=== PATIENT | female | born 1970 | race Caucasian/White ===

== ENCOUNTER 2022-01-27 09:01 | Outpatient (CLI) | payer BC, SELFPAY ==
--- NOTE | ~2022-01-27 | MM_ITS ---
EXAMINATION: MM screening [facility] BI w chuckie HISTORY: Screening mammogram TECHNIQUE: Craniocaudal and mediolateral oblique 3-D tomosynthesis images were obtained and synthetic 2-D images were generated. CAD analysis was submitted and interpreted. COMPARISON: 05/26/2018 bilateral screening mammogram BREAST PARENCHYMAL COMPOSITION: The breasts are heterogeneously dense, which may obscure small masses . FINDINGS: Stable fibroglandular asymmetry. There is no evidence of suspicious mass, calcification, or architectural distortion to suggest malignancy in either breast. There has been no suspicious interv al change. IMPRESSION: 1. No mammographic evidence of malignancy. 2. Recommend routine screening mammography in one year. BI-RADS Category 2: Benign finding(s). Reviewed, dictated and finalized at location A.
== END 2022-01-27 09:02 | disposition home or self-care (01) ==
PROVIDERS: PCP Internal Medicine; Visit Provider Nurse Practitioner
DX: Z12.31 Encounter for screening mammogram for malignant neoplasm of breast (principal)
CPT/HCPCS: 77063; 77067

== ENCOUNTER 2022-03-28 14:19 | Outpatient (CLI) | payer BC, SELFPAY ==
--- NOTE | ~2022-03-28 | CT_ITS ---
EXAMINATION: CT abdomen pelvis wo con DATE: 03/28/2022 14:37 INDICATION: Hematuria TECHNIQUE: Computed tomography (CT) of the abdomen and pelvis was performed without intravenous contr ast. Automated exposure control and iterative reconstruction technique were employed. Exam dose: 455 .29 mGy-cm total exam DLP. COMPARISON: 04/28/2019 KUB 04/18/2019 CT abdomen pelvis FINDINGS: The lung bases are clear of infiltrate or consolidation. Normal heart size. No pericardial or pleural effusion. The gallbladder is absent. There is mild intrahepatic pneumobilia. No bile duct or pancreatic duct di latation is detected. No hepatic, splenic, pancreatic, right adrenal space-occupying mass lesion is evident. There is thick ening of the medial limb of the left adrenal gland, possibly due to hypertrophy or small adenoma. No renal mass lesion or urinary tract calculus or hydroureteronephrosis is evident. The urinary bladd er is unremarkable. Multicystic left adnexal lesion is again noted, measuring up to 3.5 x 5.5 cm compared to 5 x 6 cm sundeep roximately on 04/18/2019. The uterus and right adnexal area are unremarkable. Normal caliber of the abdominal aorta. No intraperitoneal or retroperitoneal or pelvic mass lesion or adenopathy or ascites is noted otherwise. There is a small bowel anastomosis in the left lower quadrant with small bowel follow up to 4.9 cm pr oximal to the anastomotic site suggesting partial obstruction since 04/18/2019, at which time the tamar e area measuring up to only 2.9 cm diameter. Status post right partial colectomy. There are fluid levels in the transverse and descending colon. Included skeletal structures are unremarkable. IMPRESSION: Partial small bowel obstruction is suggested in the small bowel anastomotic site in the lower left quadrant, where the small bowel measures up to 4.9 cm diameter compared to 2.9 cm diameter on 04/18/2019 Status post right partial colectomy, with fluid levels in the transverse and descending colon Mildly diminished size of multicystic lesion of left adnexal area since 04/18/2019 No apparent renal mass lesion or any urinary tract calculus or hydroureteronephrosis is noted on this limited noncontrast examination. Reviewed, dictated and finalized at Location A. Reviewed, dictated and finalized at location B. GER TRADE IMPRESSION: Partial small bowel obstruction is suggested in the small bowel an astomotic site in the lower left quadrant, where the small bowel measures up to 4.9 cm diameter compared to 2.9 cm diameter on 04/18/2019 Status post right partial colectomy, with fluid levels in the transverse and de scending colon Mildly diminished size of multicystic lesion of left adnexal area since 019 No apparent renal mass lesion or any urinary tract calculus or hydroureteroneph rosis is noted on this limited noncontrast examination.
== END 2022-03-28 14:20 | disposition home or self-care (01) ==
PROVIDERS: PCP Internal Medicine; Visit Provider Nurse Practitioner
DX: R31.9 Hematuria, unspecified (principal)
CPT/HCPCS: 74176

== ENCOUNTER 2022-06-14 09:54 | Outpatient (CLI) | payer BC, SELFPAY ==
[2022-06-14 15:33] LABS: Basophils Absolute Auto 0.1 K/mm3 (0.0-0.1); Basophils Percent Auto 0.4 % (0.2-1.2); Eosinophils Absolute Auto 0.1 K/mm3 (0-0.3); Eosinophils Percent Auto 0.7 % (0-4.4); Hematocrit 39.4 % (37.0-47.0); Hemoglobin 12.9 g/dL (12.0-15.0); Immature Granulocyte Absolute 0.13 K/mm3 (0.00-0.031); Immature Granulocyte Percent A 0.7 % (0-0.5); Lymphocytes Absolute Auto 2.41 K/mm3 (0.9-3.2); Lymphocytes Percent Auto 13.6 % (18.3-44.2); Mean Corpuscular HGB Conc 32.7 g/dl (32-36); Mean Corpuscular Hemoglobin 30.1 pg (26-34); Mean Corpuscular Volume 92.1 fl (80-100); Mean Platelet Volume 9.3 fl (7.4-10.4); Monocytes Percent Auto 5.8 % (2.6-8.5); Neutrophils Percent Auto 78.8 % (45.5-73.1); Platelet Count Result 329 k/mm3 (150-375); Red Blood Count 4.28 M/mm3 (4.2-5.4); Red Cell Distribution Width 13.5 % (11.5-14.5); White Blood Count 17.7 K/mm3 (4.5-10.0)
[2022-06-14 16:26] LABS: Alanine Aminotransferase 17 U/L (6-35); Albumin Level 3.9 g/dL (3.5-5.1); Alkaline Phosphatase 68 U/L (38-126); Anion Gap 5 mmol/L (8-16); Aspartate Amino Transferase 26 U/L (14-36); Bilirubin,Total 0.5 mg/dL (0.2-1.3); Blood Urea Nitrogen 9 mg/dL (7-17); Calcium 8.3 mg/dL (8.4-10.2); Carbon Dioxide 29 mmol/L (22-30); Chloride 100 mmol/L (98-107); Estimated Glomerular Filt Rate > 60; Glucose 88 mg/dL (65-110); Potassium 3.3 mmol/L (3.4-5.0); Sodium 134 mmol/L (137-145)
== END 2022-06-14 09:55 | disposition home or self-care (01) ==
LOC: ANHGOSHLAB 09:56
PROVIDERS: PCP Internal Medicine; Visit Provider Internal Medicine
DX: K50.919 Crohn's disease, unspecified, with unspecified complications (principal)
CPT/HCPCS: 36415; 80053; 85025

== ENCOUNTER → 2022-08-08 12:14 | Outpatient (CLI) | payer BC, SELFPAY ==
--- NOTE | ~2022-08-08 | XR_ITS ---
AP and lateral views of the left hip Clinical history: Pain Findings: No acute fracture or dislocation is seen. Osseous alignment is anatomic. The left hip joint is preserved. Soft tissues are unremarkable. Impression: No significant abnormality is seen. Reviewed, dictated and finalized at location . Impression: No significant abnormality is seen.
== END ==
PROVIDERS: PCP Internal Medicine; Visit Provider Nurse Practitioner
DX: M25.552 Pain in left hip (principal)
CPT/HCPCS: 73502

== ENCOUNTER → 2022-12-16 09:25 | Outpatient (CLI) | payer BC, SELFPAY ==
--- NOTE | ~2022-12-16 | XR_ITS ---
EXAMINATION: XR toe 5th RT min 2V INDICATION: Right fifth toe pain TECHNIQUE: Three views of the right fifth toe are obtained. COMPARISON: None available FINDINGS: There is fusion of the fifth middle and distal phalanges. There appears to be a transverse fracture mid fusion. The proximal interphalangeal joint is unremarkable. There is soft tissue swellin g of the fifth toe. No additional fracture is identified. IMPRESSION: 1. Fracture of the fused fifth middle and distal phalanges. Reviewed, dictated and finalized at location B.
== END ==
PROVIDERS: PCP Internal Medicine; Visit Provider Nurse Practitioner
DX: M79.676 Pain in unspecified toe(s) (principal)
CPT/HCPCS: 73660

== ENCOUNTER → 2023-05-04 10:28 | Outpatient (CLI) | payer BC, SELFPAY ==
--- NOTE | ~2023-05-04 | XR_ITS ---
Right Hand Technique: PA and lateral views were obtained. Clinical History: Pain Findings: No acute fracture or dislocation is seen. Osseous alignment is anatomic. Joint spaces are p reserved. Soft tissues are unremarkable. Impression: Unremarkable right hand. Reviewed, dictated and finalized at location M. F ATTORNEY Impression: Unremarkable right hand.
== END ==
PROVIDERS: PCP Nurse Practitioner; Visit Provider Nurse Practitioner
DX: M79.646 Pain in unspecified finger(s) (principal)
CPT/HCPCS: 73120

== ENCOUNTER 2023-06-26 14:11 | Outpatient (CLI) | payer BC, SELFPAY ==
--- NOTE | ~2023-06-26 | MM_ITS ---
EXAMINATION: MM screening [facility] BI w chuckie HISTORY: Screening TECHNIQUE: Craniocaudal and mediolateral oblique 3-D tomosynthesis images were obtained and synthetic 2-D images were generated. CAD analysis was submitted and interpreted. COMPARISON: Comparison to multiple prior studies sequentially, with oldest reviewed study dated 10/28. BREAST PARENCHYMAL COMPOSITION: Not dense: There are scattered areas of fibroglandular density. FINDINGS: There is no evidence of suspicious mass, calcification, or architectural distortion to sugg est malignancy in either breast. There has been no suspicious interval change. IMPRESSION: 1. No mammographic evidence of malignancy. 2. Recommend routine screening mammography in one year. BI-RADS Category 1: Negative Reviewed, dictated and finalized at location A. IST
== END 2023-06-26 14:12 | disposition home or self-care (01) ==
LOC: ANHIMG 14:13
PROVIDERS: PCP Internal Medicine; Visit Provider Registered Nurse
DX: Z12.31 Encounter for screening mammogram for malignant neoplasm of breast (principal)
CPT/HCPCS: 77063; 77067

== ENCOUNTER 2023-07-03 19:44 | Emergency (ER) | payer BC, SELFPAY ==
--- NOTE | ~2023-07-03 | XR_ITS ---
EXAM: XR finger 5th LT min 2V DATE: 07/03/2023 21:07 HISTORY: pain, fall . COMPARISON: None available. FINDINGS: Normal mineralization. No acute fracture or dislocation. Old fracture of the distal aspect of the fifth middle phalange, healed in slight deformity. No lytic or blastic lesion. Joint spaces a nd physes are maintained. No erosion or periosteal change. Soft tissues within normal limits. IMPRESSION: No acute osseous finding in the left fifth finger. Reviewed, dictated and finalized at location K. CTOR EPIDEMIOLOGY
--- NOTE | ~2023-07-03 | XR_ITS ---
EXAM: XR shoulder LT min 2V DATE: 07/03/2023 21:06 HISTORY: left shoulder pain, fall . COMPARISON: None available. FINDINGS: Normal mineralization. No fracture or dislocation. No lytic or blastic lesion. Joint space s are maintained. No erosion or periosteal change. Soft tissues within normal limits. IMPRESSION: No acute osseous finding in the right shoulder. Reviewed, dictated and finalized at location K. GY CROP FARMER
--- NOTE | ~2023-07-03 | XR_ITS ---
EXAM: XR ankle RT min 3V DATE: 07/03/2023 21:07 HISTORY: right ankle pain, injury . COMPARISON: None available. FINDINGS: Normal mineralization. No fracture or dislocation. No lytic or blastic lesion. Joint space s are maintained. Minimal Achilles and mild plantar enthesopathy No erosion or periosteal change. Lat eral soft tissue swelling. Ankle joint effusion. IMPRESSION: No acute osseous finding in the right ankle. Reviewed, dictated and finalized at location K. IFIED MIDWIFE
--- NOTE | ~2023-07-03 | XR_ITS ---
EXAM: XR elbow LT min 3V DATE: 07/03/2023 21:06 HISTORY: left elbow pain, fall . COMPARISON: None available. FINDINGS: Normal mineralization. No fracture or dislocation. No lytic or blastic lesion. Joint space s are maintained. No erosion or periosteal change. Soft tissues within normal limits. IMPRESSION: No acute osseous finding in the left elbow. Reviewed, dictated and finalized at location K. MENT CARVER
[2023-07-03 19:50] VITALS: BP 133/67; PULSE 66; RESP 16; TEMP 36.4; O2SAT 99
--- NOTE | 2023-07-03 20:52 | ED.FALL ---
HPI - Fall General Chief Complaint: Fall Stated Complaint: Fall, R ankle pain, R arm pain Time Seen by Provider: 07/03/23 20:13 Source: patient Mode of arrival: ambulatory Limitations: no limitations History of Present Illness HPI Narrative: This is a 53-year-old female that presents to the emergency department for a fall today. Reports she was walking her dog and she tripped and fell. Reporting right ankle, left elbow, left shoulder, pain. Reports chronic deformity to the left 5th finger, that is more swollen than normal. Denies hitting her head or loss of consciousness. Denies decreased ROM or numbness. Related Data Home Medications Medication Instructions Recorded Confirmed multivitamin 1 cap PO DAILY 04/25/19 05/10/23 Allergies Allergy/AdvReac Type Severity Reaction Status Date / Time methylene blue Allergy Unknown Verified 07/03/23 20:03 morphine AdvReac Severe Headaches Verified 07/03/23 20:03 Review of Systems Review of Systems: CONSTITUTIONAL: Denies fever MUSCULOSKELETAL: Reports joint pain, and myalgia. NEUROLOGIC: Denies numbness, or weakness. All systems reviewed & are unremarkable except as noted in HPI and below PMFSH Past Medical History Medical History Anemia Anxiety Anxiety disorder, unspecified Crohn's disease Depression Fibromyalgia GERD (gastroesophageal reflux disease) History of blood transfusion Irritable bowel Osteoarthritis of hands, bilateral Restless leg syndrome Right ureteral calculus Skin cancer Surgical History Surgical History H/O local excision of skin lesion History of bowel resection History of primary section History of right hemicolectomy Hx of appendectomy Hx of cholecystectomy Hx of nephrolithotomy with removal of calculi removal of rt ureteral stone with stent placed in rt ureter Family History Family History Grandparent Family history of malignant neoplasm of breast Other Diabetes mellitus Social History Social History Smoking status: Never smoker Second hand tobacco smoke exposure: No Alcohol intake: never Lack of Transportation: No Lack of Food: Never True Current Housing: I Have Housing Concerned About Future Housing: No Difficulty Paying Gas/Electric Bills: No Difficulty Paying for Meds: No Currently Unemployed: Decline to Answer Education: Bachelor's Degree Difficulty w/ Childcare or Family Care: Decline to Answer Gender identity (if verbalized by the patient): Female Exam Narrative: GENERAL: Well-appearing, well-nourished, and in no acute distress. HEAD: Normocephalic, atraumatic. EYES: EOMI. CHEST: Clear to auscultation. No respiratory distress. No wheezes rales or rhonchi HEART: Regular rate and rhythm. No murmur heard. Normal peripheral pulses. EXTREMITIES: Normal range of motion. Right ankle with edema of the lateral malleoli. Normal DP pulse. Normal sensation. Left fifth finger with chronic deformity at the DIP joint. Normal radial pulse SKIN: Warm, dry, no rash. NEURO: No focal deficits. Alert and oriented x3. PSYCH: Normal mood and affect Course Course Emergency Course: Patient updated on workup and agrees with plan of care Vital Signs Vital signs: Vital Signs Temperature 97.6 F 07/03/23 19:50 Pulse Rate 66 07/03/23 19:50 Respiratory Rate 16 07/03/23 19:50 Blood Pressure 133/67 07/03/23 19:50 Pulse Oximetry 99 07/03/23 19:50 Oxygen Delivery Room Air 07/03/23 19:50 Temperature 97.6 F 07/03/23 19:50 Pulse Rate 66 07/03/23 19:50 Respiratory Rate 16 07/03/23 19:50 Blood Pressure 133/67 07/03/23 19:50 Pulse Oximetry 99 07/03/23 19:50 Oxygen Delivery Room Air 07/03/23 19:50 MDM - Fall MDM Narrative Medical decision making na
[2023-07-03] MEDS: IBUPROFEN 600 MG TABLET PO (21:10)
== END 2023-07-03 22:30 | disposition home or self-care (01) ==
PROVIDERS: Emergency Provider Physician Assistant; PCP Internal Medicine
DX: S93.401A Sprain of unspecified ligament of right ankle, initial encounter (principal); S49.92XA Unspecified injury of left shoulder and upper arm, initial encounter; S59.902A Unspecified injury of left elbow, initial encounter; K50.90 Crohn's disease, unspecified, without complications; K21.9 Gastro-esophageal reflux disease without esophagitis; M79.7 Fibromyalgia; M19.042 Primary osteoarthritis, left hand; M19.041 Primary osteoarthritis, right hand; G25.81 Restless legs syndrome; Z87.442 Personal history of urinary calculi; Z85.828 Personal history of other malignant neoplasm of skin; Z86.2 Personal history of diseases of the blood and blood-forming organs and certain disorders involving the immune mechanism; Z90.49 Acquired absence of other specified parts of digestive tract; W01.0XXA Fall on same level from slipping, tripping and stumbling without subsequent striking against object, initial encounter; Y93.K1 Activity, walking an animal
CPT/HCPCS: 73030; 73080; 73140; 73610; 99284; A9270

== ENCOUNTER 2023-07-14 08:15 | Outpatient (RCR) | payer BC, SELFPAY ==
--- NOTE | 2023-06-02 11:53 | OTOPEVAL1 ---
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 She is left handed. She works from home and is on a computer. Difficulties with opening jars, pinching, holding her phone, etc. Sharp increase in pain if her thumb gets bumped. She reports she drops a lot of items due to the pain. Assessment OT Clinical Summary Patient referred to OT with right 1st CMC joint OA . She presents with pain that is restricting her ability to use the thumb for ADLs and household tasks. Skilled OT indicated for orthotic fabrication, HEP instruction, modalities, manual therapy, education on joint protection techniques and therapeutic exercise to facilitate reduced pain and improved functional use of her right hand . Plan of Care Interventions Therapeutic Exercise,Manual Therapy,Therapeutic Activities,Hot Pack/Cold Pack,Check Out for Orthotic/Pr,Paraffin OT Services Indicated Yes Treatment Frequency and 1x/week for 4 visits Duration These treatments will address the objective and functional deficits as defined above. The patient will be advanced safely and appropriately in order for the patient to progress towards his/her prior level of function. Additional exercises will be introduced and as well as a comprehensive home exercise program upon discharge, if needed, ?to ensure carryover of functional gains achieved in the clinic. This treatment plan has been reviewed and agreement upon by the patient.
--- NOTE | 2023-06-23 09:52 | OTOPPROG ---
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 She continues to notice difficulties with heavier tasks, such as taking pans out of the oven. She has been wearing her thumb spica splint and she reports it's comfortable and providing relief. Reports intensity and frequency of the pain is less. Assessment OT Clinical Summary Patient referred to OT with right 1st CMC joint OA . She presents today for progress update with reduced pain and improved functional ROM, which has carried over into improved functional hand use during ADLs. She continues to have residual weakness and pain, however. Continued skilled OT indicated for orthotic fabrication, HEP instruction, modalities, manual therapy, education on joint protection techniques and therapeutic exercise to facilitate reduced pain and improved functional use of her right hand. Plan of Care Interventions Therapeutic Exercise,Manual Therapy,Therapeutic Activities,Hot Pack/Cold Pack,Check Out for Orthotic/Pr,Paraffin OT Services Indicated Yes Treatment Frequency and 1x/week for 4 visits Duration These treatments will address the objective and functional deficits as defined above. The patient will be advanced safely and appropriately in order for the patient to progress towards his/her prior level of function. Additional exercises will be introduced and as well as a comprehensive home exercise program upon discharge, if needed, ?to ensure carryover of functional gains achieved in the clinic. This treatment plan has been reviewed and agreement upon by the patient.
--- NOTE | 2023-07-14 08:08 | PCOTNOTE ---
LATE NOTE FOR 07/07/23: Patient called & cancelled scheduled appointment this date.
--- NOTE | 2023-07-14 08:49 | OTOPDC ---
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 No longer reports daily pain, just soreness at the end of a busy day. She is complaint with splint wearing schedule. Assessment OT Clinical Summary Patient referred to OT with right 1st CMC joint OA. She has made great progress with therapy, noting reduced intensity and frequency of her thumb pain during ADLs. She is currently independent with splinting, joint protection techniques, and light strengthening HEP. No further skilled OT indicated at this time. Plan of Care OT Services Indicated No
== END 2023-07-14 10:31 | disposition home or self-care (01) ==
LOC: ANHOT 08:15
PROVIDERS: PCP Nurse Practitioner; Visit Provider Plastic Surgery
DX: M18.11 Unilateral primary osteoarthritis of first carpometacarpal joint, right hand (principal)
CPT/HCPCS: 97018; 97110; 97140; 97165; L3913

== ENCOUNTER 2024-07-23 20:47 | Emergency (ER) | payer BC, SELFPAY ==
--- NOTE | ~2024-07-23 | CT_ITS ---
EXAMINATION: CT abdomen pelvis w con DATE: 07/23/2024 22:34 INDICATION: hematuria; c/f stone; also abd pain hx crohns TECHNIQUE: Computed tomography (CT) of the abdomen and pelvis was performed with 100 mL Omnipaque-350 intravenous contrast. Automated exposure control and iterative reconstruction technique were employe d. The dose-length product was 420.06 mGy-cm. COMPARISON: 03/28/2022. FINDINGS: Lower thorax: Unremarkable Liver: Mild enlargement. Biliary/Gallbladder: Gallbladder is absent. Mildly dilated common bile duct, likely secondary to chol ecystectomy. Pancreas: No mass or duct dilation. Spleen: Normal. Adrenals: 1.2 cm left adrenal adenoma. Kidneys: No suspicious mass. Mild inflammatory change at the left renal pelvis without significant hy dronephrosis. 4 mm and 2 mm stones are present in the proximal left ureter. GI tract: Uniformly enhancing wall thickening in the duodenum. Short segment mildly dilated proximal jejunum, without wall thickening. Status post right partial colectomy, with fluid filling the remaini ng colon. Dilation of the small bowel anastomosis, measuring up to 6.1 cm (previously 4.9 cm), with t he suggestion of mucosal hyperemia. Appendix is surgically absent. Mesentery/Peritoneum: No ascites, mass, or free air. Retroperitoneum: No mass. Pelvis: Mostly empty urinary bladder. Normal uterus. Tubular serpiginous structure associated with th e right ovary. 4.6 cm simple appearing left ovarian cyst. Marked dilation of the left gonadal vein an d multiple pelvic veins.. Soft Tissues: Soft tissues and body wall unremarkable. Bones: No acute osseous finding. IMPRESSION: Mild hepatomegaly. 4 mm and 2 mm stones are present in the proximal left ureter, with mild ureteral inflammation but no significant hydronephrosis. Duodenal wall thickening, may reflect acute enteritis. Short segment proximal jejunal dilation, may represent focal ileus. Early obstruction not excluded. Progressive dilation of the small bowel anastomosis in the left lower quadrant, may reflect a degree of partial chronic obstruction. Mucosal hyperemia at the anastomosis may represent enteritis. Fluid filled colon as can be seen with diarrheal illness. 4.6 cm simple appearing left ovarian cyst. Possible right hydrosalpinx, consider pelvic ultrasound for further evaluation. Dilated pelvic and left gonadal veins as can be seen with pelvic congestion syndrome. Correlate clini gael for persistent dull pelvic pain lasting > 6 months, dysmenorrhea, dyspareunia, postcoital ache, and urinary symptoms. Reviewed, dictated and finalized at location K. IMPRESSION: Mild hepatomegaly. 4 mm and 2 mm stones are present in the proximal left ureter, with mild uretera l inflammation but no significant hydronephrosis. Duodenal wall thickening, may reflect acute enteritis. Short segment proximal jejunal dilation, may represent focal ileus. Early obstr uction not excluded. Progressive dilation of the small bowel anastomosis in the left lower quadrant, may reflect a degree of partial chronic obstruction. Mucosal hyperemia at the anastomosis may represent enteritis. Fluid filled colon as can be seen with diarrheal illness. 4.6 cm simple appearing left ovarian cyst. Possible right hydrosalpinx, consider pelvic ultrasound for further evaluation. Dilated pelvic and left gonadal veins as can be seen with pelvic congestion syn drome. Correlate clinically for persistent dull pelvic pain lasting > 6 months, dysmenorrhea, dyspareunia, postcoital ache, and urinary symptoms.
--- OUTSIDE RECORDS SUMMARY | 2024-07-23 20:50 | XMS_ITS | Encounter Summary ---
Author Organization [facility] [facility] [place] [address] Care Team Providers Care Tandem Mill Sticker Name Role Phone Leroy Jensen DO Primary Care Provider [phone] Reason for Visit * Reason Onset Date Comments Results 11/11/2019 Encounter Details Date Type Department Care Team (Late st Contact Info) Description 11/11/2019 Telephone [facility] [address] [place] [address] Alfredo Robles MD [address] [facility] [address] [place] [address] Results Social History Tobacco Use Types Packs/Day Years Used Date Smoking Tobacco: Former Cigarettes 1 14 1 993 - 05/01/2006 Smokeless Tobacco: Never Alcohol Use Standard Drinks/Week Comments No 0 (1 standard drink = 0.6 oz pur e alcohol) Sex and Gender Information Value Date Recorded Sex Assigned at Not on file Gender Identity Not on file Sexual Orientation Not on file documented as of this encounter Functional Status Functional Status Response Date of Assess ment Is person deaf or have serious hearing difficult y? No 03/10/2019 Is person blind or have serious difficulty seein g? No 03/10/2019 Does person have serious dif ficulty walking/climbing stairs? No 03/10/2019 Does person have difficulty dressing/bathing? No 03/10/2019 Does person have difficulty doing errands alone? No 03/10/2019 Cognitive Status Response Date of Assessm ent Does person have difficulty concentrating/remembering/making decisions? No 03/10/2019 documented as of this encounter Miscellaneous Notes * Telephone Encounter - Rebeka Kelly - 11/11/2019 9:26 AM CDT Patient called asking for biopsy results. Pt believes she missed a call from us with BX results. Please call pt at cell # [phone]. Please call patient. Charlene Kelly Senior Patient Wood Flooring Specialist Department of Dermatology, Mohs Surgery and Cutaneous Oncology [facility] Dermatology [facility] documented in this encounter Plan of Treatment Upcoming Encounters Date Type Department Care Team (Late st Contact Info) Description 08/30/2024 10:20 AM CDT Office Visit [facility] - Dermatology [address] [place] [address], [place] [address] Alfredo Robles MD [address] [place] [address] [address] [place] [address] documented as of this encounter Goals Goal Patient Goal Type Associated Problems Recent Progress Patient-Stated? Author Safety General On track( 023 8:59 AM CDT) Leni Romo RN Note: Expected end date: Ongoing Interventions: Your nurse will assess your risk for falls/injury each visit Use appropriate and safe transfer methods Medication Management General On track( 024 4:18 PM CDT) Leni Romo RN Note: Expected end date: Ongoing Interventions: Take all medications as prescribed Let your doctor know right away about any changes in your medications documented as of this encounter Visit Diagnoses Not on filedocumented in this encounter Additional Health Concerns Infection Onset Date Last Indicated Resolved Time CDIFF Under Investigation 07/28/2022 07/28/2022 1:07 PM CDT CDIFF Under Investigation 08/02/2022 08/11/2023 10:56 PM CDT CDIFF Under Investigation 09/07/2023 09/07/2023 4:35 AM CDT documented as of this encounter Care Teams Tandem Mill Sticker Relationship Specialty Start Date End Date Leroy Jensen DO PCP - General 02/01/16 documented as of this encounter
--- OUTSIDE RECORDS SUMMARY | 2024-07-23 20:50 | XMS_ITS | Clinical Summary ---
Author Organization [facility] Address [address] [place] [address] Care Team Providers Care Table Cut Off Saw Operator Name Role Phone Leroy Jensen DO Primary Care Provider Source Comments [facility],non-owned Affiliates and Associated Physician Practices is amultiple site organization consisting of ambulatory clinics and hospital sitesin [place], [place], [place] and [place]. This disclosure is being madepursuant to the Care Everywhere program and may not contain all information available regarding this patient. Last updated 18.[facility] Allergies Active Allergy Reactions Criticality Noted Date Comments Methylene Blue Other Low 06/01/2017 Methylene blue is contraindicated in patients taking nortriptyline. Morphine Headache Medium 08/10/2022 Medications * Be aware that medications may not be up to date on this document. Alwaysverify current medications with the patient. Medication Sig Dispensed Refills Start Date End Date Status vitamin D3 (CHOLECALCIFEROL) 25 MCG (1000 UT) tablet Take 2 (two) tablets by mouth once daily Active ibuprofen (MOTRIN) 600 MG tablet Take 1 (one) tablet by mouth once as needed (migraine headaches) Active pramipexole (Mirapex) 1 MG tablet Take 2 (two) tablets by mouth once daily Active Multiple Vitamins-Minerals (MULTIVITAMIN ADULT PO) Take 1 tablet by mouth once daily Active Myrbetriq 25 MG tablet Take 1 (one) tablet by mouth once daily 04/03/2023 Active Cholestyramine 4 GM/DOSEIndications: Bile salt-induced diarrhea (HCC) Take 4 (four) g by mouth once daily 378 g 1 08/10/2023 Active Additional Information Patient not taking.Reported on 10/10/2023 omeprazole (PriLOSEC) 40 MG capsuleIndications: Gastro-esophageal reflux disease without esophagitis Take 1 (one) capsule by mouth 2 times daily, before breakfast and supper for 60 days, THEN 1 (one) capsule daily before breakfast for 90 days. 210 capsule 08/10/2023 Active budesonide (Entocort EC) 3 MG capsuleIndications: Crohn's disease of colon with complication (HCC) Take 3 (three) capsules by mouth once daily for 28 days, THEN 2 (two) capsules once daily for 14 days, THEN 1 (one) capsule once daily for 14 days. 126 capsule 09/07/2023 Active Additional Information Patient not taking.Reported on 10/10/2023 polyethylene glycol (Golytely) 236 g solution Drink all of the prep at 6pm the night before colonoscopy. Please finish all of the prep before going to bed. 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 -Wound care instructions reviewed and provided -Home care instructions reinforced- apply salicylic acid (Compound W, Dr. Kirk's, etc) at home to verruca overnight. Remove in the morning and file down with disposable emery board then discard used emery board. Discontinue or hold treatment if significant discomfort occurs. 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 She understands and says she will. Other hemorrhoids 06/16/2019 Small bowel obstruction 03/10/2019 Rash and other nonspecific skin eruption 019 Assessment & Plan (06/12/2020 9:27 AM ENGLISH LANGUAGE LEARNER TEACHER): Bilateral palms - Ddx: punctate-type palmoplantar keratoderma vs palmoplantar porokeratosis, likely in setting of immunosuppression - Start OTC Cerave anti-itch and Amlactin PRN TID Prurigo papule 12/21/2018 History of nonmelanoma skin cancer 05/09/2018 Melanocytic nevi of trunk 05/09/2018 Actinic keratosis 05/09/2018 Neoplasm of uncertain behavior of skin 9 Assessment & Plan (06/12/2020 9:23 AM ENGLISH LANGUAGE LEARNER TEACHER): - Location: right superior baker, 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 If intervention is indicated, will make arrangements at that time Lentigines 05/09/2018 Assessment & Plan (06/12/2020 9:27 AM ENGLISH LANGUAGE LEARNER TEACHER): - Benign, patient reassured - Skin cancer, sun protection, and photoaging discussed Crohn's disease without complication 05/16/2017 Overview (07/31/2017): Per written order 04/05/2017 Mixed irritable bowel syndrome 04/05/2017 Gastro-esophageal reflux disease without esophag itis 04/05/2017 Acquired absence of other sp ecified parts of digestive tract 04/05/2017 Major depressive disorder, single episode 2016 Anxiety disorder 04/05/2017 Resolved Problems Problem Noted Date Diagnosed Date Resolved Date SCC (squamous cell carcinoma), leg, right 07/07/2020 07/07/2020 Encounters Date Type Department Care Team Description 07/11/2024 Travel from Last 3 Months Immunizations Name Administration Dates Next Due CovSonian primary monoval ent 12+ yr 0.3mL Purple cap 08/16/2020,07/26/2020 FLU VACCINE TRI IIV3 SPLIT PF IM (FLUVIRIN) 09/2016 HEP A/HEP B 08/10/2023,01/19/2023,09/15/2022 INFLUENZA VACCINE, QUADR. (F LUZONE; FLULAVAL; FLUARIX; AFLURIA QUADRIVALENT; 6MO+), 0.5 ML (IIV4) 03/11/2019 PNEUMOCOCCAL PPSV23 07/04/2018 Pneumococcal Pcv13 Conj 04/05/2017 TDAP, HISTORIC VACCINE 08/08/2022 Family History Medical History Relation Name Comments None Known Brother Cancer - Skin, Non Melanoma Father Status: Alive None Known Maternal Aunt None Known Maternal Grandfather None Known Maternal Grandmother None Known Maternal Uncle Cancer - Skin, Non Melanoma Mother Status: Alive None Known Other None Known Paternal Aunt None Known Paternal Grandfather Cancer - Breast Paternal Grandmother None Known Paternal Uncle None Known Sister Allergy (Severe) Neg Hx Asthma Neg Hx CVA Neg Hx Cancer Neg Hx Cancer - Other Neg Hx Cancer - Skin, Melanoma Neg Hx Eczema Neg Hx Hemophilia Neg Hx Psoriasis Neg Hx Rashes/Skin Problems Neg Hx Relation Name Status Comments Brother Father Maternal Aunt Maternal Grandfather Maternal Grandmother Maternal Uncle Mother Other Paternal Aunt Paternal Grandfather Paternal Grandmother Paternal Uncle Sister Social History Tobacco Use Types Packs/Day Years Used Date Smoking Tobacco: Former Cigarettes 1 14 1 993 - 05/01/2006 Smokeless Tobacco: Never Tobacco Cessation:Counseling Given: Not Answered Alcohol Use Standard Drinks/Week Comments No 0 (1 standard drink = 0.6 oz pur e alcohol) Sex and Gender Information Value Date Recorded Sex Assigned at Not on file Gender Identity Not on file Sexual Orientation Not on file Last Filed Vital Signs Vital Sign Reading Time Taken Comments Blood Pressure 121/82 10/10/2023 10:38 AM CDT Pulse 71 10/10/2023 10:15 AM CDT Temperature 36.1 C (97 F) 10/10/2023 9:57 AM CDT Respiratory Rate 15 10/10/2023 10:1 5 AM CDT Oxygen Saturation 100% 10/10/2023 10: 38 AM CDT Inhaled Oxygen Concentration - - Weight 68.9 kg (151 lb 14.4 oz) 10/10/2023 7:26 AM CDT Height 165.1 cm (5' 5 ) 10/10/2023 7:26 AM CDT Body Mass Index 25.28 10/10/2023 7:26 AM CDT Plan of Treatment Upcoming Encounters Date Type Department Care Team (Late st Contact Info) Description 08/30/2024 10:20 AM CDT Office Visit [facility] - Dermatology [address] [place] [address], [facility] [place] [address] Alfredo Robles MD [address] [address] [address] [place] [address] Health Maintenance Due Date Last Done Comments COLOGUARD (AGES 45-75) - COLON CA SCREENING 1972 CT COLONOGRAPHY - COLON CA SCREENING 1972 FIT - COLON CA SCREENING 1972 FLEX SIG - COLON CA SCREENING 1972 MAMMOGRAM 1972 PAP SMEAR 1972 HIV SCREENING 1987 HEPATITIS C SCREENING 06/06/1990 ZOSTER VACCINE (1 of 2) 2022 PNEUMOCOCCAL VACCINE 50+ (3 of 3 - PCV20 or PCV21) 07/05/2023 07/04/2018, 04/05/2017 COVID-19 VACCINE ( - season) 2023 05/14/2021, 08/16/2020, 07/26/2020 INFLUENZA VACCINE (#1) 2023 03/11/2019, 2016 LIPID TESTING 02/12/2024 02/11/2019 DEPRESSION SCREENING 05/01/2024 SCREENING FOR DIABETES 08/09/2026 , 03/10/2019, 07/04/2018, Additional history exists DTAP/TDAP/TD VACCINES (2 - Td or Tdap) 08/08/2032 08/08/2022 COLON MONITORING 10/09/2033 10/10/2023, 03/2023, 08/10/2022, Additional history exists COLONOSCOPY - COLON CA SCREENING 10/09/2033 10/10/2023, 08/10/2022, 08/10/2022, Additional history exists Colorectal Cancer Screening 10/09/2033 HEPATITIS A VACCINE Completed 08/10/2023, 01/19/2023, 09/15/2022 HEPATITIS B VACCINE Completed 08/10/2023, 01/19/2023, 09/15/2022 HIB VACCINE Aged Out No longer eligi ble based on patient's age to complete this topic HPV VACCINE Aged Out No longer eligi ble based on patient's age to complete this topic MENINGOCOCCAL (Group B) VACCINE SHARED DECISION-MAKING Aged Out No longer eligible based on patient's age to complete this topic MENINGOCOCCAL GROUPS A/C/Y/W VACCINE Aged Out No longer eligible based on patient's age to complete this topic Goals Goal Patient Goal Type Associated Problems Recent Progress Patient-Stated? Author Safety General On track( 023 8:59 AM CDT) Leni Romo, JOANNE Note: Expected end date: Ongoing Interventions: Your nurse will assess your risk for falls/injury each visit Use appropriate and safe transfer methods Medication Management General On track( 024 4:18 PM CDT) Leni Romo RN Note: Expected end date: Ongoing Interventions: Take all medications as prescribed Let your doctor know right away about any changes in your medications Procedures Procedure Name Priority Date/Time Associated Diagnosis Comments COMPREHENSIVE METABOLIC PANEL Routine 08/10/2023 11:07 AM CDT Crohn's disease without complication, unspecified gastrointestinal tract location ENDOSCOPY, COLON, SCREENING Routine 08/10/2022 10:16 AM CDT LIPID PROFILE (EXTERAL RESULT ENTRY) Routine 02/11/2019 from Last 3 Months or Most Recently Relevant to Health Maintenance Results * (ABNORMAL) COMPREHENSIVE METABOLIC PANEL (08/10/2023 11:07 AM [facility]) BUN 12 7 - 26 mg/dL 08/10/2023 11:45 AM [facility] Creatinine 0.55(L) 0.56 - 0.96 mg/dL 08/10/2023 11:45 AM [facility] Sodium 139 136 - 145 mmol/L 08/10/2023 11:45 AM [facility] Potassium 3.6 3.5 - 4.5 mmol/L 08/10/2023 11:45 AM [facility] Chloride 106 98 - 107 mmol/L 08/10/2023 11:45 AM [facility] CO2 25 22 - 29 mmol/L 08/10/2023 11:45 AM [facility] Glucose 100 70 - 115 mg/dL 08/10/2023 11:45 AM [facility] Calcium 9.2 8.4 - 10.2 mg/dL 08/10/2023 11:45 AM [facility] Protein Total 6.9 6.0 - 8.3 g/dL 08/10/2023 11:45 AM [facility] Albumin 3.7 3.4 - 5.0 g/dL 08/10/2023 11:45 AM [facility] Bilirubin Total 0.7 0.2 - 1.2 mg/dL 08/10/2023 11:45 AM [facility] Alkaline Phosphatase 74 40 - 150 U/L 08/10/2023 11:45 AM [facility] ALT 13 5 - 55 U/L 08/10/2023 11:45 AM [facility] AST 14 5 - 34 U/L 08/10/2023 11:45 AM [facility] Anion Gap 8 6 - 16 08/10/2023 11:45 AM [facility] BUN/Creatinine Ratio 22 7 - 23 08/10/2023 11:45 AM [facility] Osmolality Calculated 288 275 - 295 mOsm/kg 08/10/2023 11:45 AM [facility] Albumin/Globulin Ratio 1.2 1.1 - 2.3 08/10/2023 11:45 AM CDT [facility] eGFR by CKD-EPI >90 >=90 mL/min/1.7 3 m2 08/10/2023 11:45 AM CDT [facility] Blood BLOOD SPECIMEN / Unknown Lab Venipuncture / Unknown 08/10/2023 11:07 AM CDT 08/10/2023 11:16 AM CDT Provider Unknown LAB - CHEMISTRY KONSTANTIN ROGERS [facility] [address] [place] [address], [facility] [phone] * ENDOSCOPY, COLON, SCREENING (08/10/2022 10:16 AM CDT) Report Endoscopy POC Endoscopy Department Report _ Patient Name: Summer York Procedure Date: 08/10/2022 10:16 AM Date of : 1970 Classification: Outpatient Gender: Female Ethnicity: Not or Race: White _ Providers: Tennille Young (Labundy)MD, Boaz Deal (Fellow) Referring MD: Procedure: Colonoscopy Indications: Follow-up of Crohn's disease of the small bowel and colon. Currently off Crohn's disease therapy. Medications: Monitored Anesthesia Care Patient Profile: 52 yo F with ileocolonic Crohn's disease and prior R hemicolectomy presents for assessment of disease activity off therapy. Description of Procedure: Pre-Anesthesia Assessment: - Prior to the procedure, a History and Physical was performed, and patient medications and allergies were reviewed. The patient's tolerance of previous anesthesia was also reviewed. The risks and benefits of the procedure and the sedation options and risks were discussed with the patient. All questions were answered, and informed consent was obtained. Prior Anticoagulants: The patient has taken no previous anticoagulant or antiplatelet agents. ASA Grade Assessment: II - A patient with mild systemic disease. After reviewing the risks and benefits, the patient was deemed in satisfactory condition to undergo the procedure. After I obtained informed consent, the scope was passed under direct vision. Throughout the procedure, the patient's blood pressure, pulse, and oxygen saturations were monitored continuously. The PCF-[id number] was introduced through the anus and advanced to the ileocolonic anastomosis. The colonoscopy was somewhat difficult due to significant looping and a tortuous colon. Successful completion of the procedure was aided by straightening and shortening the scope to obtain bowel loop reduction and lavage. The patient tolerated the procedure well. The quality of the bowel preparation was evaluated using the BBPS ([place] Bowel Preparation Scale) with scores of: Right Colon = 2 (minor amount of residual staining, small fragments of stool and/or opaque liquid, but mucosa seen well), Transverse Colon = 2 (minor amount of residual staining, small fragments of stool and/or opaque liquid, but mucosa seen well) and Left Colon = 2 (minor amount of residual staining, small fragments of stool and/or opaque liquid, but mucosa seen well). The total BBPS score equals 6. The quality of the bowel preparation was adequate. The ileocecal valve, appendiceal orifice, and rectum were photographed. Findings: The perianal and digital rectal examinations were normal. There was evidence of a prior R hemicolectomy and end-to-side ileo-colonic anastomosis at 50 cm proximal to the anus. A fistula vs. stricture was found and was traversed and lead to an area of dilated small bowel and prior anastamosis. There was some evidence of inflammation and erosions leading to what appeared to be the entrance to the ciera-terminal ileum. This area was biopsied with a cold forceps for histology. The ciera-terminal ileum could not be intubated. The colon (entire examined portion) appeared normal. This was biopsied with a cold forceps for histology. The exam was otherwise without abnormality on direct and retroflexion views. Estimated Blood Loss: Estimated blood loss was minimal. Complications: No immediate complications. Impression: - Preparation of the colon was fair. - Evidence of prior R hemicolectomy and patent end-to-side ileo-colonic anastomosis, with area of stricture vs. fistula that was biopsied. Neoterminal ileum was unable to be intubated due to edema and narrowing. - The entire examined colon is normal. Biopsied. - The examination was otherwise normal on direct and retroflexion views. Recommendation: - Resume previous diet. - Continue present medications. - Await pathology results. - Return to my office as previously scheduled. - Repeat colonoscopy is recommended. The colonoscopy date will be determined after pathology results from today's exam become available for review. Attending Participation: I was present and participated during the entire procedure, including non-ko portions. Procedure Code(s): --- Professional --- 29084, Colonoscopy, flexible; with biopsy, single or multiple Diagnosis Code(s): --- Professional --- Z98.0, Intestinal bypass and anastomosis status K50.80, Crohn's disease of both small and large intestine without complications CPT copyright 2019 [employer]. All rights reserved. The codes documented in this report are preliminary and upon medical transcription review may be revised to meet current compliance requirements. Tennille Young MD (Labundy) 08/10/2022 11:14:16 AM Note Initiated On: 08/10/2022 10:16 AM Number of Addenda: [address] [id number] [facility] 08/10/2022 10:1 6 AM CDT Tennille Young MD GI PROCEDURE ORDE KEN [facility] * (ABNORMAL) LIPID PROFILE (EXTERAL RESULT ENTRY) (02/11/2019) Cholesterol (EXTERNAL RESULT) 150 100 - 199 mg/dL Triglycerides (EXTERNAL RESULT) 215(A) 0 - 149 mg/dL HDL (EXTERNAL RESULT) 52 >39 mg/dL LDL (EXTERNAL RESULT) 55 0 - 99 mg/dL VLDL (EXTERNAL RESULT) 43(A) 5 - 40 mg/dL Chol HDL Ratio (External Result) Blood BLOOD SPECIMEN / Unknown 02/11/2019 Historical Provider LAB - CHEMISTRY O RDERABLES from Last 3 Months or Most Recently Relevant to Health Maintenance Advance Directives * Full Code (Latest Code Status on File) Date Activated Date Inactivated Comments 03/10/2019 11:27 PM 03/12/2019 11:25 AM Care Teams Table Cut Off Saw Operator Relationship Specialty Start Date End Date Leroy Jensen DO PCP - General 02/01/16
--- OUTSIDE RECORDS SUMMARY | 2024-07-23 20:50 | XMS_ITS ---
Author Organization [facility] Address [address] 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 Condyloma acuminata 06/16/2019 Assessment & Plan (06/12/2020 9:22 AM FISHER LAMPARA NET): x2 in perianal region today - Patient [...] 019 Assessment & Plan (06/12/2020 9:27 AM FISHER LAMPARA NET): Bilateral palms - Ddx: punctate-type palmoplantar keratoderma vs palmoplantar porokeratosis, likely in setting of immunosuppression - Start OTC Cerave anti-itch and Amlactin PRN TID Prurigo papule 12/21/2018 History of nonmelanoma skin cancer 05/09/2018 Melanocytic nevi of trunk 05/09/2018 Actinic keratosis 05/09/2018 Neoplasm of uncertain behavior of skin 9 Assessment & Plan (06/12/2020 9:23 AM FISHER LAMPARA NET): - Location: right superior baker, 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 If intervention is indicated, will make arrangements at that time Lentigines 05/09/2018 Assessment & Plan (06/12/2020 9:27 AM FISHER LAMPARA NET): - Benign, patient reassured - Skin cancer, sun protection, and photoaging discussed Crohn's disease without complication 05/16/2017 Overview (07/31/2017): Per written order 04/05/2017 Mixed irritable bowel syndrome 04/05/2017 Gastro-esophageal reflux disease without esophag itis 04/05/2017 Acquired absence of other sp ecified parts of digestive tract 04/05/2017 Major depressive disorder, single episode 2016 Anxiety disorder 04/05/2017 Current Oncology Plans No current plan information found. Other Current Plans RISANKIZUMAB (SKYRIZI) CROHN'S INDUCTION IVPB THERAPY PLAN* Plan Start Date: 09/07/2023 Plan Provider:Adalgisa Salguero APRN-CAROLYN Linked Problems Crohn's disease without comp lication, unspecified gastrointestinal tract location (HCC) Treatment Medications No medications scheduled. Past Plans Radiation Treatments * No radiation treatments are documented for this patient in [facility]. Treatments may have been administered in another system. Lifetime Dose Tracking * Chemical Lifetime Dose Automatic Entry Manual Entr y Dose Length Product 1,054 mGy-cm 1,054 mGy-cm 0 mGy-cm Resolved Problems Problem Noted Date Diagnosed Date Resolved Date SCC (squamous cell carcinoma), leg, right 07/07/2020 07/07/2020
[2024-07-23 20:51] VITALS: BP 122/61; PULSE 90; RESP 16; TEMP 36.6; O2SAT 98
--- NOTE | 2024-07-23 21:06 | ED.FEMALEGU ---
HPI - Female Genitourinary General Chief complaint: Urogenital-Female Stated complaint: Blood in urine-poss kidney stone Time Seen by Provider: 07/23/24 21:00 Source: patient Mode of arrival: ambulatory Limitations: no limitations History of Present Illness HPI Narrative: Patient presents with report hematuria this morning and night. She is concerned for possible kidney stone either still present or already passed. He has a history of kidney stone(s) requiring surgical intervention including a stent for the last 1. She also has had frequent diagnoses of urinary tract infections. She is perimenopause wound through last menstrual period occurring 8-9 years ago. She experiences some suprapubic/low abdominal/pelvic pain although also reports a history of Crohn's so difficult to identify although she does not believe she has a Crohn's flare. Her pain is 2/10 severity. She used a heating pad last night and that seemed to help. Not on anticoagulation, chronic steroids, or NSAIDs although she did take an Excedrin migraine this morning due to a headache. She was having some cramping on her left flank and abdomen of she states this is improving. No nausea or vomiting. Does not know the name the urologist she previously saw. She experiences frequent urination. Decreased urine output today. No fevers or chills. Related Data Home Medications ?Medication ?Instructions ?Recorded ?Confirmed ?Last Taken ?Type multivitamin 1 cap PO DAILY 04/25/19 03/20/24 Unknown History ascorbate calcium (vitamin C) 500 500 mg PO DAILY 02/15/24 03/20/24 Unknown History mg tablet magnesium 200 mg tablet 200 mg PO DAILY 02/15/24 03/20/24 Unknown History omeprazole 40 mg capsule,delayed mg PO 03/20/24 03/20/24 Unknown History release Allergies Allergy/AdvReac Type Severity Reaction Status Date / Time methylene blue Allergy Unknown Verified 07/23/24 20:48 morphine AdvReac Severe Headaches Verified 07/23/24 20:48 [facility] Past Medical History Medical History Anxiety disorder, unspecified Osteoarthritis of hands, bilateral Skin cancer Right ureteral calculus History of blood transfusion Anemia Anxiety Depression GERD (gastroesophageal reflux disease) Irritable bowel Fibromyalgia Restless leg syndrome Crohn's disease Surgical History Surgical History History of right hemicolectomy Hx of nephrolithotomy with removal of calculi removal of rt ureteral stone with stent placed in rt ureter H/O local excision of skin lesion History of primary section Hx of cholecystectomy Hx of appendectomy History of bowel resection Family History Family History Grandparent Family history of malignant neoplasm of breast Other Diabetes mellitus Social History Social History Smoking status: Former smoker Second hand tobacco smoke exposure: No Alcohol intake: never Lack of Transportation: No Lack of Food: Never True Current Housing: I Have Housing Concerned About Future Housing: No Difficulty Paying Gas/Electric Bills: No Difficulty Paying for Meds: No Currently Unemployed: Decline to Answer Education: Bachelor's Degree Difficulty w/ Childcare or Family Care: Decline to Answer Gender identity (if verbalized by the patient): Female Exam Narrative: GENERAL: Well-appearing, well-nourished, and in no acute distress. Nontoxic appearing HEAD: Normocephalic, atraumatic. EYES: Non injected, non icteric ENT: Nares clear, no rhinorrhea or epistaxis. NECK: Supple. CHEST: Speaking in full sentences. No respiratory distress. HEART: Regular rate and rhythm. . ABDOMEN: Soft, nondistended. Mild suprapubic tenderness to palpation without rigidity or guarding. Not peritoneal. : No CVA tenderness bilaterally. Hematuria is noted in collection container at bedside. EXTREMITIES: Normal range of motion. No lower extremity edema. SKIN: Warm, dry, no rash. NEURO: No focal deficits. Alert and oriented x3. PSYCH: Normal mood and affect. Course Vital Signs Vital signs: Vital Signs Temperature 98 F 07/23/24 20:51 Pulse Rate 90 07/23/24 20:51 Respiratory Rate 16 07/23/24 20:51 Blood Pressure 122/61 07/23/24 20:51 Pulse Oximetry 98 07/23/24 20:51 Oxygen Delivery Room Air 07/23/24 20:51 Temperature 98 F 07/23/24 20:51 Pulse Rate 88 07/24/24 01:11 Respiratory Rate 14 07/24/24 01:11 Blood Pressure 128/69 07/24/24 01:11 Pulse Oximetry 100 03/26/25 01:11 Oxygen Delivery Room Air 07/23/24 20:51 MDM - Female Genitourinary MDM Narrative Medical decision making narrative: Patient presents with report of hematuria this morning and tonight. Last night she was experiencing cramping on her left side (flank and abdomen) but this resolved after the use if the heating pad. She has a history of both kidney stones as frequent urinary tract infections lately. She is perimenopausal. She is concerned for possible kidney stone that is either still present or already passed though states pain is mild at this point, 2/10 in severity. In the emergency department they are afebrile with vital signs within normal limits. No bacteriuria on urinalysis however there is marked hematuria as well as leukocyte esterase positive and white blood cells. Given she also has suprapubic tenderness, will treat as UTI. Possible hemorrhagic cystitis but will continue to work up for other etiologies given history. Previous cultures are reviewed which showed no growth. CRP and ESR normal. Very mild leukocytosis. Patient is perimenopausal. test negative. CT scan does show presence of 2 small ureteral stones. Patient given medication to help with their passage as well as will be prescribed the same. She notes she does not have any contraindication to NSAIDs despite having Crohn's. Also will be provided a strainer and urology follow-up. She is also told about the presence of ovarian cyst and that NSAIDs can also help with the inflammation secondary to this. In addition we discussed the findings in her uterus and Fallopian tubes. This may explain her general suprapubic fullness as well as the frequent diagnosis of urinary tract infections but without clearly identifiable bacteria. She does have an Ob Gyne. We discussed outpatient follow-up in the form of a ultrasound for this and that this can be arranged through her PCP or Ob Gyne. She is flying to [place] in the morning. Provided paper prescription so that she can fill her prescriptions at the pharmacy of her choice. Given strict ED return precautions. She verifies understanding. Stable for discharge. Differential Diagnosis Differential diagnosis: Likely urinary tract infection, ovarian cyst, ruptured ovarian cyst, cystitis and other (Kidney stone, pyelonephritis, Crohn's flare; bladder cancer/malignancy) Lab Data Attestation: I reviewed the patient's lab results. 07/23/24 21:20 07/23/24 21:20 Labs: Lab Results 07/23/24 07/23/24 07/23/24 Range/Units 21:20 21:20 21:32 WBC 10.5 H (4.5-10.0) K/mm3 RBC 4.56 (4.2-5.4) M/mm3 Hgb 13.5 (12.0-15.0) g/dL Hct 41.8 (37.0-47.0) % MCV 91.7 (80-100) fl MCH 29.6 (26-34) pg MCHC 32.3 (32-36) g/dl RDW 13.5 (11.5-14.5) % Plt Count 345 (150-375) k/mm3 MPV 9.0 (7.4-10.4) fl Immature Gran % (Auto) 0.5 (0-0.5) % Neut % (Auto) 60.6 (45.5-73.1) % Lymph % (Auto) 29.3 (18.3-44.2) % [place] % (Auto) 6.7 (2.6-8.5) % Eos % (Auto) 2.4 (0-4.4) % Baso % (Auto) 0.5 (0.2-1.2) % Lymph # (Auto) 3.09 (0.9-3.2) K/mm3 [place] # (Auto) 0.7 H (0.1-0.6) K/mm3 Eos # (Auto) 0.3 (0-0.3) K/mm3 Baso # (Auto) 0.1 (0.0-0.1) K/mm3 Abs Immat Gran (auto) 0.05 H (0.00-0.031) K/mm3 Absolute Neuts (auto) 6.4 (1.3-6.7) K/mm3 Absolute Nucleated RBC 0.000 (0.0-0.012) K/mm3 Nucleated RBC % 0.0 (0.0-0.2) % ESR 9 (0-20) mm/hr PT 13.2 (11.1-14.7) Seconds INR 1.0 APTT 30.3 (22.3-36.8) Seconds Sodium 136 L (137-145) mmol/L Potassium 3.8 (3.4-5.0) mmol/L Chloride 102 (98-107) mmol/L Carbon Dioxide 23 (22-30) mmol/L Anion Gap 11 (4-12) mmol/L BUN 11 (7-17) mg/dL Creatinine 0.73 (0.7-1.0) mg/dL Estim Creat Clear Calc 79 ml/min Estimated GFR > 60 (59 - ) Glucose 111 H (65-110) mg/dL Calcium 9.0 (8.4-10.2) mg/dL C-Reactive Protein < 0.5 Cancelled (<1.0) mg/dL Urine Color Dark yellow (Yellow) Urine Appearance Turbid H (Clear) Urine pH 5.5 (5.0-9.0) Ur Specific [place] 1.028 (1.001-1.035) Urine Protein 2+ H (Negative) mg/dL Urine Glucose (UA) Negative (Negative) mg/dL Urine Ketones Trace H (Negative) mg/dL Ur Blood (Man) 3+ H (Negative) Urine Nitrate Negative (Negative) Urine Bilirubin 1+ H (Negative) Urine Urobilinogen 1.0 (<2.0) mg/dL Add Ur Microanalysis Reviewed Leukocyte Esterase Rfl 1+ H (Negative) YANETH/UL Urine RBC >100 H (0-2) /hpf Urine WBC 11-20 H (0-3) /hpf Ur Squamous Epith Cells None seen (Few) /hpf Calcium Oxalate Crystal Present (None) /hpf Urine Bacteria None seen /hpf Urine Casts 0-2 POC Urine HCG, Qual Negative (Negative) Imaging Data Radiologist's impression: Impressions Abdomen/Pelvis CT 07/23/24 23:44 IMPRESSION: Mild hepatomegaly. 4 mm and 2 mm stones are present in the proximal left ureter, with mild ureteral inflammation but no significant hydronephrosis. Duodenal wall thickening, may reflect acute enteritis. Short segment proximal jejunal dilation, may represent focal ileus. Early obstruction not excluded. Progressive dilation of the small bowel anastomosis in the left lower quadrant, may reflect a degree of partial chronic obstruction. Mucosal hyperemia at the anastomosis may represent enteritis. Fluid filled colon as can be seen with diarrheal illness. 4.6 cm simple appearing left ovarian cyst. Possible right hydrosalpinx, consider pelvic ultrasound for further evaluation. Dilated pelvic and left gonadal veins as can be seen with pelvic congestion syndrome. Correlate clinically for persistent dull pelvic pain lasting > 6 months, dysmenorrhea, dyspareunia, postcoital ache, and urinary symptoms. Discharge Plan Discharge Clinical Impression: Gross hematuria, UTI (urinary tract infection), Hepatomegaly, Calculus of left ureter, Enteritis, Cyst of left ovary, Abnormal CT scan, pelvis Patient Disposition: Home, Self-Care Condition: Stable Instructions: Antibiotic Form, Ovarian Cyst (ED), Urinary Tract Infection in Women (DC), Hematuria (ED), How to Strain Your Urine (ED), Ureteral Stones (ED) Additional Instructions: You do have evidence of 2 small stones in your ureter (2mm and 4mm) which are not currently obstructing anything and should pass on their own. Although the prescribed medications can help. You can strain your urine and follow-up with urology. The name of a urologist is listed below or you can follow-up with the urologist doing previously seen (Dr Solis). Acetaminophen/Tylenol (maximum 4000 mg per day) is safe to take with NSAIDs (ibuprofen/Motrin) for pain relief. Of these, the NSAIDs can help with both the pain and inflammation from the ureteral stone as well as ovarian cyst. Given that you are flying out of state in the morning, you are being given paper prescriptions that you can fill at an outside pharmacy. Although there was no bacteria in your urine, there are other potential markers of infection and given you are having suprapubic pain, we are treating as urinary tract infection. You received the 1st dose of antibiotic in the emergency department with the rest of the course prescribed. Again though, there are other reasons for both the blood in your urine and this pain. As discussed, seen on your CT: Possible right hydrosalpinx, consider pelvic ultrasound for further evaluation. Dilated pelvic and left gonadal veins as can be seen with pelvic congestion syndrome. Correlate clinically for persistent dull pelvic pain lasting > 6 months, dysmenorrhea, dyspareunia, postcoital ache, and urinary symptoms. Follow-up with your primary care physician or Ob Gyne who can order this study for the outpatient setting. Return to the emergency department with any new/worsening/unmanaged symptoms Patient Language: Vietnamese Prescriptions: New tamsulosin [Flomax] 0.4 mg capsule 0.4 mg PO HS Qty: 14 0RF acetaminophen 500 mg capsule 1,000 mg PO Q6H PRN (Reason: pain) Qty: 30 0RF ibuprofen 600 mg tablet 600 mg PO TID PRN (Reason: pain) Qty: 30 0RF ondansetron 4 mg tablet,disintegrating 4 mg PO Q8H PRN (Reason: nausea and vomiting) Qty: 7 0RF sulfamethoxazole-trimethoprim [Bactrim DS] 800-160 mg tablet 1 tablet PO Q12H 5 Days Qty: 9 0RF Rx Instructions: start 07/24 PM (received first dose in ED 07/24 AM) No Action omeprazole 40 mg capsule,delayed release(DR/EC) PO pramipexole 1 mg tablet See Rx Instructions .ROUTE .COMPLEX Qty: 270 3RF Dose Instruction: TAKE 2 TABLETS BY MOUTH EVERY NIGHT AT BEDTIME Rx Instructions: TAKE 3 TABLETS BY MOUTH EVERY NIGHT AT BEDTIME magnesium 200 mg tablet 200 mg PO DAILY ascorbate calcium (vitamin C) 500 mg tablet 500 mg PO DAILY multivitamin Capsule 1 cap PO DAILY Follow-up/Referrals: Royer Jay MD [Physician] - (Urology) Allan Solis MD [Physician] - (previous urologist) Lester Kumar MD [Physician] - Leroy Jensen DO [Primary Care Provider] - Stand Alone Forms: Work/School Release IP Time of Disposition: 00:59
[2024-07-23] MEDS: ACETAMINOPHEN 500 MG TABLET 1000 MG PO (21:21)
[2024-07-23 21:34] LABS: BEDSIDEPREGUCG Negative (Negative)
[2024-07-23 21:36] LABS: Basophils Absolute Auto 0.1 K/mm3 (0.0-0.1); Basophils Percent Auto 0.5 % (0.2-1.2); Eosinophils Absolute Auto 0.3 K/mm3 (0-0.3); Eosinophils Percent Auto 2.4 % (0-4.4); Hematocrit 41.8 % (37.0-47.0); Hemoglobin 13.5 g/dL (12.0-15.0); Immature Granulocyte Absolute 0.05 K/mm3 (0.00-0.031); Immature Granulocyte Percent A 0.5 % (0-0.5); Lymphocytes Absolute Auto 3.09 K/mm3 (0.9-3.2); Lymphocytes Percent Auto 29.3 % (18.3-44.2); Mean Corpuscular HGB Conc 32.3 g/dl (32-36); Mean Corpuscular Hemoglobin 29.6 pg (26-34); Mean Corpuscular Volume 91.7 fl (80-100); Monocytes Absolute Auto 0.7 K/mm3 (0.1-0.6); Monocytes Percent Auto 6.7 % (2.6-8.5); Neutrophils Absolute Auto 6.4 K/mm3 (1.3-6.7); Neutrophils Percent Auto 60.6 % (45.5-73.1); Platelet Count Result 345 k/mm3 (150-375); Red Blood Count 4.56 M/mm3 (4.2-5.4); Red Cell Distribution Width 13.5 % (11.5-14.5); White Blood Count 10.5 K/mm3 (4.5-10.0)
[2024-07-23 21:45] LABS: Add Urine Microscopic? YES; Appearance Urine Turbid (Clear); Bacteria Urine None Seen /hpf; Bilirubin Urine 1+ (Negative); Blood Urine 3+ (Negative); Calcium Oxalate Crystals Urine Present /hpf; Color Urine Dark Yellow (Yellow); Glucose Urine UA Negative (Negative); Ketones Urine Trace mg/dL (Negative); Leukocyte Esterase Ur 1+ LEU/UL (Negative); Need Manual Microscopic Reviewed; Nitrate Urine Negative (Negative); Non Pathogenic Casts 0-2; Protein Urine 2+ mg/dL (Negative); RBC Urine >100 /hpf (0-2); Specific Grav Ur 1.028 (1.001-1.035); Squamous Epithelial Cell Urine None Seen /hpf (Few); pH Urine 5.5 (5.0-9.0)
--- OUTSIDE RECORDS SUMMARY | 2024-07-23 21:46 | XMS_ITS | Encounter Summary ---
Author Organization [facility] Address [facility] [facility] [place] [address] Care Team Providers Care Copy Reader Name Role Phone Leroy Jensen DO Primary Care Provider [phone] Reason for Visit * Reason Onset Date Comments Results 11/11/2019 Encounter Details Date Type Department Care Team (Late st Contact Info) Description 11/11/2019 Telephone [facility] [address] [place] [address] Alfredo Robles MD [address] [facility] [address]L [place] [address] Results Social History Tobacco Use Types Packs/Day [...] results. Please call pt at cell # [phone]. Please call patient. Charlene Kelly Senior Patient Anthropology And Archeology Instructor Department of Dermatology, Mohs Surgery and Cutaneous Oncology [facility] Dermatology [facility] documented in this encounter Plan of Treatment Upcoming Encounters Date Type Department Care Team (Late st Contact Info) Description 08/30/2024 10:20 AM CDT Office Visit [facility] - Dermatology [address] [place] [address], [place] [address] Alfredo Robles MD [address] [place] [address] [address] [place] [address] documented as of this encounter Goals Goal [...] documented as of this encounter Care Teams Copy Reader Relationship Specialty Start Date End Date Leroy Jensen DO PCP - General 02/01/16 documented as of this encounter
--- OUTSIDE RECORDS SUMMARY | 2024-07-23 21:46 | XMS_ITS ---
Author Organization [facility] Address [address] 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 Condyloma acuminata 06/16/2019 Assessment & Plan (06/12/2020 9:22 AM [employer]): x2 in perianal region today - Patient [...] 019 Assessment & Plan (06/12/2020 9:27 AM [employer]): Bilateral palms - 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 If intervention is indicated, will make arrangements at that time Lentigines 05/09/2018 Assessment & Plan (06/12/2020 9:27 AM [employer]): - Benign, patient reassured - Skin cancer, [...] treatments are documented for this patient in [facility]. Treatments may have been administered in another system. Lifetime Dose Tracking * Chemical Lifetime Dose Automatic Entry Manual Entr y Dose Length Product 1,054 mGy-cm 1,054 mGy-cm 0 mGy-cm Resolved Problems Problem Noted Date Diagnosed Date Resolved Date SCC (squamous cell carcinoma), leg, right 07/07/2020 07/07/2020
--- OUTSIDE RECORDS SUMMARY | 2024-07-23 21:46 | XMS_ITS | Clinical Summary ---
Author Organization [facility] [employer] Address [address] [place] [address] Care Team Providers Care Physical Meteorologist Name Role Phone Leroy Jensen DO Primary Care Provider Source Comments [facility] [employer],non-owned Affiliates and Associated Physician Practices is amultiple site organization consisting of ambulatory clinics and hospital sitesin [place], [place], [place] and [place]. This disclosure is being madepursuant to the Care Everywhere program and may not contain all information available regarding this patient. 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 Condyloma acuminata 06/16/2019 Assessment & Plan (06/12/2020 9:22 AM [employer]): x2 in perianal region today - Patient [...] 019 Assessment & Plan (06/12/2020 9:27 AM [employer]): Bilateral palms - 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 If intervention is indicated, will make arrangements at that time Lentigines 05/09/2018 Assessment & Plan (06/12/2020 9:27 AM [employer]AND [employer]GER): - Benign, patient reassured - Skin cancer, [...] Months Immunizations Name Administration Dates Next Due CovTruly primary monoval ent 12+ yr 0.3mL Purple [...] Office Visit [facility] - Dermatology [address] [place] [address], [facility] [place] [address] Alfredo Robles MD [address] [place] [address] [address] [place] [address] Health Maintenance Due Date Last Done Comments [...] (ABNORMAL) COMPREHENSIVE METABOLIC PANEL (08/10/2023 11:07 AM [facility]) BUN 12 7 - 26 mg/dL 08/10/2023 11:45 AM [facility] Creatinine 0.55(L) 0.56 - 0.96 mg/dL 08/10/2023 11:45 AM [facility] Sodium 139 136 - 145 mmol/L 08/10/2023 11:45 AM [facility] Potassium 3.6 3.5 - 4.5 mmol/L 08/10/2023 11:45 AM [facility] Chloride 106 98 - 107 mmol/L 08/10/2023 11:45 AM [facility] CO2 25 22 - 29 mmol/L 08/10/2023 11:45 AM [facility] Glucose 100 70 - 115 mg/dL 08/10/2023 11:45 AM [facility] Calcium 9.2 8.4 - 10.2 mg/dL 08/10/2023 11:45 AM [facility] Protein Total 6.9 6.0 - 8.3 g/dL 08/10/2023 11:45 AM [facility] Albumin 3.7 3.4 - 5.0 g/dL 08/10/2023 11:45 AM [facility] Bilirubin Total 0.7 0.2 - 1.2 mg/dL 08/10/2023 11:45 AM [facility] Alkaline Phosphatase 74 40 - 150 U/L 08/10/2023 11:45 AM [facility] ALT 13 5 - 55 U/L 08/10/2023 11:45 AM [facility] AST 14 5 - 34 U/L 08/10/2023 11:45 AM [facility] Anion Gap 8 6 - 16 08/10/2023 11:45 AM [facility] BUN/Creatinine Ratio 22 7 - 23 08/10/2023 11:45 AM [facility] Osmolality Calculated 288 275 - 295 mOsm/kg 08/10/2023 11:45 AM [facility] Albumin/Globulin Ratio 1.2 1.1 - 2.3 08/10/2023 11:45 AM CDT [facility] eGFR by CKD-EPI >90 >=90 mL/min/1.7 3 m2 08/10/2023 11:45 AM CDT [facility] Blood BLOOD SPECIMEN / Unknown Lab Venipuncture / Unknown 08/10/2023 11:07 AM CDT 08/10/2023 11:16 AM CDT Provider Unknown LAB - CHEMISTRY KONSTANTIN ROGERS [facility] [address] [place] [address], [facility] [phone] * ENDOSCOPY, COLON, SCREENING (08/10/2022 10:16 AM CDT) Report Endoscopy POC Endoscopy Department Report _ Patient Name: Summer York Procedure Date: 08/10/2022 10:16 AM Date of : 1970 Classification: Outpatient Gender: Female Ethnicity: Not or Race: White _ Providers: Tnenille Young (Labundy)MD, Boaz Deal (Fellow) Referring MD: [...] bowel preparation was evaluated using the BBPS ([place] Bowel Preparation Scale) with scores of: Right [...] non-ko portions. Procedure Code(s): --- Professional --- 38249, Colonoscopy, flexible; with biopsy, single or multiple Diagnosis Code(s): --- Professional --- Z98.0, Intestinal bypass and anastomosis status K50.80, Crohn's disease of both small and large intestine without complications CPT copyright 2019 [employer]. All rights reserved. The codes documented in this report are preliminary and upon mica inspector review may be revised to meet current compliance requirements. Tennille Young MD (Labundy) 08/10/2022 11:14:16 AM Note Initiated On: 08/10/2022 10:16 AM Number of Addenda: [address] [address] [facility] 08/10/2022 10:1 6 AM CDT Tennille Young MD GI PROCEDURE ORDE KEN [facility] * (ABNORMAL) LIPID PROFILE (EXTERAL [...] 11:27 PM 03/12/2019 11:25 AM Care Teams Physical Meteorologist Relationship Specialty Start Date End Date Leroy Jensen DO PCP - General 02/01/16
[2024-07-23 21:47] LABS: Prothrombin Time 13.2 Seconds (11.1-14.7)
[2024-07-23 21:48] LABS: Anion Gap 11 mmol/L (4-12); Blood Urea Nitrogen 11 mg/dL (7-17); CRP < 0.5 mg/dL (<1.0); Carbon Dioxide 23 mmol/L (22-30); Chloride 102 mmol/L (98-107); Estimated CRCL calculation 79 ml/min; Estimated Glomerular Filt Rate > 60; Glucose 111 mg/dL (65-110); Partial Thromboplastin Time 30.3 Seconds (22.3-36.8); Potassium 3.8 mmol/L (3.4-5.0); Sodium 136 mmol/L (137-145)
[2024-07-23 21:59] LABS: Erythrocyte Sedimentation Rate 9 mm/hr (0-20)
[2024-07-24] MEDS: TAMSULOSIN HCL 0.4 MG CAPSULE PO (01:04)
[2024-07-24] MEDS: KETOROLAC 15 MG/ML VIAL (*BKC) IV PUSH (01:04)
[2024-07-24] MEDS: SULFAMETHOXAZOLE/TRIMETHOPRIM 800/160 MG DS TABLET 1 TAB PO (01:04)
[2024-07-24 01:11] VITALS: BP 128/69; PULSE 88; RESP 14; O2SAT 100
== END 2024-07-24 01:15 | disposition home or self-care (01) ==
PROVIDERS: Emergency Provider Student in an Organized Health Care Education/Training Program; PCP Internal Medicine
DX: N39.0 Urinary tract infection, site not specified (principal); R31.9 Hematuria, unspecified; N20.1 Calculus of ureter; K52.9 Noninfective gastroenteritis and colitis, unspecified; R93.5 Abnormal findings on diagnostic imaging of other abdominal regions, including retroperitoneum; F41.9 Anxiety disorder, unspecified; M19.90 Unspecified osteoarthritis, unspecified site; D64.9 Anemia, unspecified; F32.A Depression, unspecified; K21.9 Gastro-esophageal reflux disease without esophagitis; M79.7 Fibromyalgia; G25.81 Restless legs syndrome
CPT/HCPCS: 36415; 74177; 80048; 81001; 81025; 85025; 85610; 85652; 85730; 86140; 87086; 96374; 99284; A9270; J1885; Q9967

== ENCOUNTER 2024-08-05 10:34 | Emergency (ER) | payer BC, SELFPAY ==
--- NOTE | ~2024-08-05 | CT_ITS ---
CT of the Abdomen and Pelvis: Indication: Abdominal pain Technique: 2.5 mm axial scans were obtained through the abdomen and pelvis following intravenous adm inistration of 100 cc of Omnipaque 350. Dose reduction technique was used on this scan by utilizing a utomated exposure control and iterative reconstruction technique. The dose-length product (DLP) was 4 57.45 mGy-cm. COMPARISON: 07/23/2024, 03/28/2022 Findings: Scans through the lung bases are unremarkable. The liver, spleen, pancreas, right adrenal and, and right kidney are within normal limits. Left urete ral stones have migrated to the distal ureter (axial image 138), with minimal left hydronephrosis. St able small left adrenal nodule. Gallbladder absent. There is increased dilatation of the common bile duct to 17 mm. No evidence of aortic aneurysm. No lymphadenopathy. No bowel obstruction or bowel wall thickening. Stable partial colectomy. Images through the pelvis were performed. Urinary bladder unremarkable. Right hydrosalpinx versus cys tic ovarian mass is unchanged. No ascites. Impression: Left ureteral stones have migrated to the distal ureter since prior exam, as detailed above, with min imal left hydroureteronephrosis to this level. Increased dilatation of common bile duct to 17 mm, of uncertain clinical significance. Stable right hydrosalpinx versus other cystic ovarian mass. Reviewed, dictated and finalized at [facility]. Impression: Left ureteral stones have migrated to the distal ureter since prior exam, as de tailed above, with minimal left hydroureteronephrosis to this level. Increased dilatation of common bile duct to 17 mm, of uncertain clinical signif icance. Stable right hydrosalpinx versus other cystic ovarian mass.
[2024-08-05 10:47] VITALS: BP 141/97; PULSE 77; RESP 16; TEMP 36.4; O2SAT 99
--- NOTE | 2024-08-05 11:27 | PC.NURSE ---
Urine specimen obtained, thick bloody urine noted
--- NOTE | 2024-08-05 11:36 | ED_ITS ---
HPI - Abdominal Pain General Chief Complaint: Abdominal Pain Stated Complaint: kidney stone pain, feels like I have a bowel obstr Time Seen by Provider: 08/05/24 11:06 Source: patient Mode of arrival: ambulatory Limitations: no limitations History of Present Illness HPI narrative: This is a 54-year-old female that presents to the emergency department for left- sided abdominal pain. Reports recently being diagnosed with multiple ureteral stones. She has not had follow-up with urology yet. Reports continued pain as well as hematuria today. She has also had multiple loose stools. Reports nausea and vomiting. Denies fevers. Related Data Home Medications ?Medication ?Instructions ?Recorded ?Confirmed ?Last Taken ?Type multivitamin 1 cap PO DAILY 04/25/19 03/20/24 Unknown History ascorbate calcium (vitamin C) 500 500 mg PO DAILY 02/15/24 03/20/24 Unknown History mg tablet magnesium 200 mg tablet 200 mg PO DAILY 02/15/24 03/20/24 Unknown History omeprazole 40 mg capsule,delayed mg PO 03/20/24 03/20/24 Unknown History release Allergies Allergy/AdvReac Type Severity Reaction Status Date / Time methylene blue Allergy Unknown Verified 08/05/24 10:35 morphine AdvReac Severe Headaches Verified 08/05/24 10:35 Review of Systems 2 Review of Systems: CONSTITUTIONAL: Denies fever GASTROINTESTINAL: Reports abdominal pain, nausea, vomiting, and diarrhea. GENITOURINARY: Reports dysuria and hematuria. All systems reviewed & are unremarkable except as noted in HPI and below PMFSH Past Medical History Medical History Anxiety disorder, unspecified Osteoarthritis of hands, bilateral Skin cancer Right ureteral calculus History of blood transfusion Anemia Anxiety Depression GERD (gastroesophageal reflux disease) Irritable bowel Fibromyalgia Restless leg syndrome Crohn's disease Surgical History Surgical History History of right hemicolectomy Hx of nephrolithotomy with removal of calculi removal of rt ureteral stone with stent placed in rt ureter H/O local excision of skin lesion History of primary section Hx of cholecystectomy Hx of appendectomy History of bowel resection Family History Family History Grandparent Family history of malignant neoplasm of breast Other Diabetes mellitus Social History Social History Smoking status: Former smoker Second hand tobacco smoke exposure: No Alcohol intake: never Lack of Transportation: No Lack of Food: Never True Current Housing: I Have Housing Concerned About Future Housing: No Difficulty Paying Gas/Electric Bills: No Difficulty Paying for Meds: No Currently Unemployed: Decline to Answer Education: Bachelor's Degree Difficulty w/ Childcare or Family Care: Decline to Answer Gender identity (if verbalized by the patient): Female Exam 2 Narrative: GENERAL: Well-appearing, well-nourished, and in no acute distress. HEAD: Normocephalic, atraumatic. EYES: EOMI. CHEST: Clear to auscultation. No respiratory distress. No wheezes rales or rhonchi HEART: Regular rate and rhythm. No murmur heard. Normal peripheral pulses. ABDOMEN: Soft, nontender, nondistended, normal active bowel sounds. EXTREMITIES: Normal range of motion. No edema. SKIN: Warm, dry, no rash. NEURO: No focal deficits. Alert and oriented x3. PSYCH: Normal mood and affect Course Course Emergency Course: patient updated on workup and agrees with plan of care. reports pain is under control at this time. prefers outpatient management Consultations Consultation #1: spoke with urology about patient and workup. if pain is under control patient may discharge and follow up in clinic Date: 08/05/24 Vital Signs Vital signs: Vital Signs Temperature 97.5 F L 08/05/24 10:47 Pulse Rate 77 08/05/24 10:47 Respiratory Rate 16 08/05/24 10:47 Blood Pressure 141/97 H 08/05/24 10:47 Pulse Oximetry 99 08/05/24 10:47 Oxygen Delivery Room Air 08/05/24 10:47 Temperature 98.0 F 08/05/24 14:45 Pulse Rate 66 08/05/24 14:45 Respiratory Rate 18 08/05/24 14:45 Blood Pressure 132/79 08/05/24 14:45 Pulse Oximetry 98 08/05/24 14:45 Oxygen Delivery Room Air 08/05/24 10:47 MDM - Abdominal Pain MDM Narrative Medical decision making narrative: Patient presents to the emergency department for left flank/abdominal pain. History of recently diagnosed kidney stone. She is afebrile and nontoxic appearing. CBC with leukocytosis to 11.8. Metabolic panel without concerning findings. Urine with evidence of infection. This was sent for culture. Given dose of Rocephin in the ER. CT abdomen pelvis shows ureteral stones are now more distal. Once again shows right hydrosalpinx. spoke with urology about patient and workup. if pain is under control patient may discharge and follow up in clinic. patient updated on workup and agrees with plan of care. reports pain is under control at this time. prefers outpatient management. She was given warnings to return to the ER Differential Diagnosis Differential diagnosis: Likely calculus of kidney, small bowel obstruction and other (UTI) Lab Data Attestation: I reviewed the patient's lab results. 08/05/24 11:31 08/05/24 11:31 Labs: Lab Results 08/05/24 Range/Units 11:31 WBC 11.8 H (4.5-10.0) K/mm3 RBC 4.50 (4.2-5.4) M/mm3 Hgb 13.3 (12.0-15.0) g/dL Hct 42.1 (37.0-47.0) % MCV 93.6 (80-100) fl MCH 29.6 (26-34) pg MCHC 31.6 L (32-36) g/dl RDW 13.2 (11.5-14.5) % Plt Count 340 (150-375) k/mm3 MPV 9.3 (7.4-10.4) fl Immature Gran % (Auto) 0.3 (0-0.5) % Neut % (Auto) 73.0 (45.5-73.1) % Lymph % (Auto) 17.9 L (18.3-44.2) % [place] % (Auto) 7.0 (2.6-8.5) % Eos % (Auto) 1.3 (0-4.4) % Baso % (Auto) 0.5 (0.2-1.2) % Lymph # (Auto) 2.11 (0.9-3.2) K/mm3 [place] # (Auto) 0.8 H (0.1-0.6) K/mm3 Eos # (Auto) 0.2 (0-0.3) K/mm3 Baso # (Auto) 0.1 (0.0-0.1) K/mm3 Abs Immat Gran (auto) 0.04 H (0.00-0.031) K/mm3 Absolute Neuts (auto) 8.6 H (1.3-6.7) K/mm3 Absolute Nucleated RBC 0.000 (0.0-0.012) K/mm3 Nucleated RBC % 0.0 (0.0-0.2) % Sodium 140 (137-145) mmol/L Potassium 3.7 (3.4-5.0) mmol/L Chloride 105 (98-107) mmol/L Carbon Dioxide 25 (22-30) mmol/L Anion Gap 10 (4-12) mmol/L BUN 11 (7-17) mg/dL Creatinine 0.65 L (0.7-1.0) mg/dL Estim Creat Clear Calc 89 ml/min Estimated GFR > 60 (59 - ) Glucose 111 H (65-110) mg/dL Calcium 8.9 (8.4-10.2) mg/dL Total Bilirubin 0.4 (0.2-1.3) mg/dL AST 23 (14-36) U/L ALT 23 (6-35) U/L Alkaline Phosphatase 77 (38-126) U/L Total Protein 7.0 (6.3-8.2) g/dL Albumin 4.1 (3.5-5.1) g/dL Lipase 64 (23-300) U/L Urine Color Red H (Yellow) Urine Appearance Turbid H (Clear) Urine pH 5.0 (5.0-9.0) Ur Specific [place] 1.025 (1.001-1.035) Urine Protein 1+ H (Negative) mg/dL Urine Glucose (UA) Negative (Negative) mg/dL Urine Ketones Negative (Negative) mg/dL Ur Blood (Man) 1+ H (Negative) Urine Nitrate Positive H (Negative) Urine Bilirubin 1+ H (Negative) Urine Urobilinogen 1.0 (<2.0) mg/dL Add Ur Microanalysis Reviewed Leukocyte Esterase Rfl 2+ H (Negative) YANETH/UL Urine RBC >100 H (0-2) /hpf Urine WBC 21-50 H (0-3) /hpf Ur Squamous Epith Cells Occasional (Few) /hpf Urine Bacteria None seen /hpf Urine Casts 0-2 Imaging Data Radiologist's impression: ITS Impressions Abdomen/Pelvis CT 08/05/24 12:34 Impression: Left ureteral stones have migrated to the distal ureter since prior exam, as detailed above, with minimal left hydroureteronephrosis to this level. Increased dilatation of common bile duct to 17 mm, of uncertain clinical significance. Stable right hydrosalpinx versus other cystic ovarian mass. Critical Care Time Critical Care Time Critical Care Time: No Discharge Plan Discharge Clinical Impression: Ureterolithiasis, Acute UTI Patient Disposition: Home Condition: Stable Instructions: Antibiotic Form, Kidney Stones (ED), How to Strain Your Urine (ED) Additional Instructions: Return to the ER if you experience fever, abdominal pain with nausea and vomiting, you are unable to keep down liquids or solids, or any other symptoms that are concerning to you Remain well hydrated. Take Flomax as prescribed. [id number] pain medication as needed. Prescribed pain medication as needed. Take oral antibiotic as prescribed Follow up with urology. Call to make an appointment Patient Language: Citizen Of [place] Prescriptions: New hydrocodone-acetaminophen 5-325 mg tablet 1 tablet PO Q6H PRN (Reason: pain) Qty: 20 0RF cephalexin 500 mg tablet 500 mg PO Q6H 7 Days Qty: 28 0RF No Action omeprazole 40 mg capsule,delayed release(DR/EC) PO pramipexole 1 mg tablet See Rx Instructions .ROUTE .COMPLEX Qty: 270 3RF Dose Instruction: TAKE 2 TABLETS BY MOUTH EVERY NIGHT AT BEDTIME Rx Instructions: TAKE 3 TABLETS BY MOUTH EVERY NIGHT AT BEDTIME magnesium 200 mg tablet 200 mg PO DAILY ascorbate calcium (vitamin C) 500 mg tablet 500 mg PO DAILY multivitamin Capsule 1 cap PO DAILY tamsulosin [Flomax] 0.4 mg capsule 0.4 mg PO HS Qty: 14 0RF acetaminophen 500 mg capsule 1,000 mg PO Q6H PRN (Reason: pain) Qty: 30 0RF ibuprofen 600 mg tablet 600 mg PO TID PRN (Reason: pain) Qty: 30 0RF ondansetron 4 mg tablet,disintegrating 4 mg PO Q8H PRN (Reason: nausea and vomiting) Qty: 7 0RF sulfamethoxazole-trimethoprim [Bactrim DS] 800-160 mg tablet 1 tablet PO Q12H 5 Days Qty: 9 0RF Rx Instructions: start 07/24 PM (received first dose in ED 07/24 AM) Follow-up/Referrals: Omkar Urbina MD [Physician] - Leroy Jensen DO [Primary Care Provider] -
[2024-08-05] MEDS: HYDROmorphone HCL INJ (*CRX) 1 MG/ML SYR 0.5 MG IV PUSH ×2 (11:40→13:09)
[2024-08-05] MEDS: SODIUM CHLORIDE 0.9% IV 1,000 ML 999 ML IV CONT (11:41)
[2024-08-05 11:46] VITALS: BP 134/81; PULSE 57; RESP 18; O2SAT 97
[2024-08-05 11:50] LABS: Basophils Absolute Auto 0.1 K/mm3 (0.0-0.1); Basophils Percent Auto 0.5 % (0.2-1.2); Eosinophils Absolute Auto 0.2 K/mm3 (0-0.3); Eosinophils Percent Auto 1.3 % (0-4.4); Hematocrit 42.1 % (37.0-47.0); Hemoglobin 13.3 g/dL (12.0-15.0); Immature Granulocyte Absolute 0.04 K/mm3 (0.00-0.031); Immature Granulocyte Percent A 0.3 % (0-0.5); Lymphocytes Absolute Auto 2.11 K/mm3 (0.9-3.2); Lymphocytes Percent Auto 17.9 % (18.3-44.2); Mean Corpuscular HGB Conc 31.6 g/dl (32-36); Mean Corpuscular Hemoglobin 29.6 pg (26-34); Mean Corpuscular Volume 93.6 fl (80-100); Mean Platelet Volume 9.3 fl (7.4-10.4); Monocytes Absolute Auto 0.8 K/mm3 (0.1-0.6); Neutrophils Absolute Auto 8.6 K/mm3 (1.3-6.7); Platelet Count Result 340 k/mm3 (150-375); Red Cell Distribution Width 13.2 % (11.5-14.5); White Blood Count 11.8 K/mm3 (4.5-10.0)
[2024-08-05 11:59] LABS: Alanine Aminotransferase 23 U/L (6-35); Albumin Level 4.1 g/dL (3.5-5.1); Alkaline Phosphatase 77 U/L (38-126); Anion Gap 10 mmol/L (4-12); Aspartate Amino Transferase 23 U/L (14-36); Bilirubin,Total 0.4 mg/dL (0.2-1.3); Blood Urea Nitrogen 11 mg/dL (7-17); Calcium 8.9 mg/dL (8.4-10.2); Carbon Dioxide 25 mmol/L (22-30); Chloride 105 mmol/L (98-107); Estimated CRCL calculation 89 ml/min; Estimated Glomerular Filt Rate > 60; Glucose 111 mg/dL (65-110); Lipase 64 U/L (23-300); Potassium 3.7 mmol/L (3.4-5.0); Sodium 140 mmol/L (137-145)
[2024-08-05 12:10] LABS: Add Urine Microscopic? YES; Appearance Urine Turbid (Clear); Bilirubin Urine 1+ (Negative); Blood Urine 1+ (Negative); Color Urine Red (Yellow); Glucose Urine UA Negative (Negative); Ketones Urine Negative (Negative); Leukocyte Esterase Ur 2+ LEU/UL (Negative); Nitrate Urine Positive (Negative); Protein Urine 1+ mg/dL (Negative); Specific Grav Ur 1.025 (1.001-1.035)
--- OUTSIDE RECORDS SUMMARY | 2024-08-05 12:12 | XMS_ITS | Clinical Summary ---
Author Organization [facility] Address [address] [place] [address] Care Team Providers Care Telephone Betting Clerk Name Role Phone Leroy Jensen DO Primary Care Provider [phone] Source Comments [facility],non-owned Affiliates and Associated Physician Practices is amultiple site organization consisting of ambulatory clinics and hospital sitesin [place], [place], [place] and [place]. This disclosure is being madepursuant to the Care Everywhere program and may not contain all information available regarding this patient. 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 Condyloma acuminata 06/16/2019 Assessment & Plan (06/12/2020 9:22 AM FURNITURE FINISHER): x2 in perianal region today - Patient [...] 019 Assessment & Plan (06/12/2020 9:27 AM FURNITURE FINISHER): Bilateral palms - Ddx: 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 If intervention is indicated, will make arrangements at that time Lentigines 05/09/2018 Assessment & Plan (06/12/2020 9:27 AM FURNITURE FINISHER): - Benign, patient reassured - Skin cancer, [...] Months Immunizations Name Administration Dates Next Due CovBreaker primary monoval ent 12+ yr 0.3mL Purple [...] Office Visit [facility] - Dermatology [address] [place] [address], [facility] [place] [address] Alfredo Robles MD [address] [place] [address] [address] [place] [address] Health Maintenance Due Date Last Done Comments [...] ( - season) 2023 05/14/2021, 08/16/2020, 07/26/2020 LIPID TESTING 02/12/2024 02/11/2019 DEPRESSION SCREENING 05/01/2024 INFLUENZA VACCINE (Season Ended) 2024 03/11/2019, 04/05/2017 SCREENING FOR DIABETES 08/09/2026 , 03/10/2019, 07/04/2018, [...] (ABNORMAL) COMPREHENSIVE METABOLIC PANEL (08/10/2023 11:07 AM [facility]) BUN 12 7 - 26 mg/dL 08/10/2023 11:45 AM [facility] Creatinine 0.55(L) 0.56 - 0.96 mg/dL 08/10/2023 11:45 AM [facility] Sodium 139 136 - 145 mmol/L 08/10/2023 11:45 AM [facility] Potassium 3.6 3.5 - 4.5 mmol/L 08/10/2023 11:45 AM [facility] Chloride 106 98 - 107 mmol/L 08/10/2023 11:45 AM [facility] CO2 25 22 - 29 mmol/L 08/10/2023 11:45 AM [facility] Glucose 100 70 - 115 mg/dL 08/10/2023 11:45 AM [facility] Calcium 9.2 8.4 - 10.2 mg/dL 08/10/2023 11:45 AM [facility] Protein Total 6.9 6.0 - 8.3 g/dL 08/10/2023 11:45 AM [facility] Albumin 3.7 3.4 - 5.0 g/dL 08/10/2023 11:45 AM [facility] Bilirubin Total 0.7 0.2 - 1.2 mg/dL 08/10/2023 11:45 AM [facility] Alkaline Phosphatase 74 40 - 150 U/L 08/10/2023 11:45 AM [facility] ALT 13 5 - 55 U/L 08/10/2023 11:45 AM [facility] AST 14 5 - 34 U/L 08/10/2023 11:45 AM [facility] Anion Gap 8 6 - 16 08/10/2023 11:45 AM [facility] BUN/Creatinine Ratio 22 7 - 23 08/10/2023 11:45 AM [facility] Osmolality Calculated 288 275 - 295 mOsm/kg 08/10/2023 11:45 AM [facility] Albumin/Globulin Ratio 1.2 1.1 - 2.3 08/10/2023 11:45 AM CDT [facility] eGFR by CKD-EPI >90 >=90 mL/min/1.7 3 m2 08/10/2023 11:45 AM CDT [facility] Blood BLOOD SPECIMEN / Unknown Lab Venipuncture / Unknown 08/10/2023 11:07 AM CDT 08/10/2023 11:16 AM CDT Provider Unknown LAB - CHEMISTRY KONSTANTIN ROGERS [facility] [address] [place] [address], [facility] [phone] * ENDOSCOPY, COLON, SCREENING (08/10/2022 10:16 AM [...] bowel preparation was evaluated using the BBPS ([place] Bowel Preparation Scale) with scores of: Right [...] non-ko portions. Procedure Code(s): --- Professional --- 80908, Colonoscopy, flexible; with biopsy, single or multiple Diagnosis Code(s): --- Professional --- Z98.0, Intestinal bypass and anastomosis status K50.80, Crohn's disease of both small and large intestine without complications CPT copyright 2019 [employer]. All rights reserved. The codes documented in this report are preliminary and upon payable processor review may be revised to meet current compliance requirements. Tennille Young MD ([place]) 08/10/2022 11:14:16 AM Note Initiated On: 08/10/2022 10:16 AM Number of Addenda: [address] [address] [facility] 08/10/2022 10:1 6 AM CDT Tennille Young MD GI PROCEDURE ORDE KEN [facility] * (ABNORMAL) LIPID PROFILE (EXTERAL [...] 11:27 PM 03/12/2019 11:25 AM Care Teams Telephone Betting Clerk Relationship Specialty Start Date End Date Leroy Jensen DO PCP - General 02/01/16
--- OUTSIDE RECORDS SUMMARY | 2024-08-05 12:12 | XMS_ITS | Encounter Summary ---
Author Organization [facility] Address [facility] [place] [address] Care Team Providers Care Mail Processing Associate Name Role Phone Leroy Jensen DO Primary Care Provider [phone] Reason for Visit * Reason Onset Date Comments Results 11/11/2019 Encounter Details Date Type Department Care Team (Late st Contact Info) Description 11/11/2019 Telephone [facility] [address] [place] [address] Alfredo Robles MD [address] [facility] [address] [place] [address] Results Social History Tobacco Use Types Packs/Day [...] results. Please call pt at cell # [phone]. Please call patient. Charlene Kelly Senior Patient Director Of Loss Prevention Department of Dermatology, Mohs Surgery and Cutaneous Oncology [facility] documented in this encounter Plan of Treatment Upcoming Encounters Date Type Department Care Team (Late st Contact Info) Description 08/30/2024 10:20 AM CDT Office Visit [facility] - Dermatology [address] [place] [address], [place] [address] Alfredo Robles MD [address] [place] [address] [address] [place] [address] documented as of this encounter Goals Goal [...] documented as of this encounter Care Teams Mail Processing Associate Relationship Specialty Start Date End Date Leroy Jensen DO PCP - General 02/01/16 documented as of this encounter
--- OUTSIDE RECORDS SUMMARY | 2024-08-05 12:12 | XMS_ITS ---
Author Organization [facility] Address [address] 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 Other viral warts 06/12/2020 Assessment & Plan (06/12/2020 9:17 AM AOC DIRECTOR COMBAT PLANS OFFICER): x1 on R hand 3rd digit -Patient [...] 06/12/2020 Assessment & Plan (06/12/2020 9:16 AM AOC DIRECTOR COMBAT PLANS OFFICER): - No atypical or concerning moles on exam today - Reviewed ABCDEs of melanoma - Sun protection reviewed - Annual FBSE recommended 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 Condyloma acuminata 06/16/2019 Assessment & Plan (06/12/2020 9:22 AM AOC DIRECTOR COMBAT PLANS OFFICER): x2 in perianal region today - Patient [...] 019 Assessment & Plan (06/12/2020 9:27 AM AOC DIRECTOR COMBAT PLANS OFFICER): Bilateral palms - Ddx: punctate-type palmoplantar keratoderma vs palmoplantar porokeratosis, likely in setting of immunosuppression - Start OTC Cerave anti-itch and Amlactin PRN TID Prurigo papule 12/21/2018 History of nonmelanoma skin cancer 05/09/2018 Melanocytic nevi of trunk 05/09/2018 Actinic keratosis 05/09/2018 Neoplasm of uncertain behavior of skin 9 Assessment & Plan (06/12/2020 9:23 AM AOC DIRECTOR COMBAT PLANS OFFICER): - Location: right superior baker, 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 If intervention is indicated, will make arrangements at that time Lentigines 05/09/2018 Assessment & Plan (06/12/2020 9:27 AM AOC DIRECTOR COMBAT PLANS OFFICER): - Benign, patient reassured - Skin cancer, [...] treatments are documented for this patient in [facility]. Treatments may have been administered in another system. Lifetime Dose Tracking * Chemical Lifetime Dose Automatic Entry Manual Entr y Dose Length Product 1,054 mGy-cm 1,054 mGy-cm 0 mGy-cm Resolved Problems Problem Noted Date Diagnosed Date Resolved Date SCC (squamous cell carcinoma), leg, right 07/07/2020 07/07/2020
[2024-08-05 12:37] LABS: Bacteria Urine None Seen /hpf; Need Manual Microscopic Reviewed; Non Pathogenic Casts 0-2; RBC Urine >100 /hpf (0-2); Squamous Epithelial Cell Urine Occasional /hpf (Few); WBC Urine 21-50 /hpf (0-3)
[2024-08-05 13:45] VITALS: BP 130/64; PULSE 68; RESP 18; O2SAT 98
--- OUTSIDE RECORDS SUMMARY | 2024-08-05 13:46 | XMS_ITS | Clinical Summary ---
Author Organization [facility] Address [address] [place] [address] Care Team Providers Care Visiting Nurse Name Role Phone Leroy Jensen DO Primary Care Provider [phone] Source Comments [facility],non-owned Affiliates and Associated Physician Practices is amultiple site organization consisting of ambulatory clinics and hospital sitesin [place], [place], [place] and [place]. This disclosure is being madepursuant to the Care Everywhere program and may not contain all information available regarding this patient. 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 Condyloma acuminata 06/16/2019 Assessment & Plan (06/12/2020 9:22 AM PULMONARY PHYSICIAN): x2 in perianal region today - Patient [...] 019 Assessment & Plan (06/12/2020 9:27 AM PULMONARY PHYSICIAN): Bilateral palms - 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 If intervention is indicated, will make arrangements at that time Lentigines 05/09/2018 Assessment & Plan (06/12/2020 9:27 AM PULMONARY PHYSICIAN): - Benign, patient reassured - Skin cancer, [...] Months Immunizations Name Administration Dates Next Due CovCertiRx primary monoval ent 12+ yr 0.3mL Purple [...] Office Visit [facility] - Dermatology [address] [place] [address], [facility] [address] Alfredo Robles MD [address] [place] [address] [address] [place] [address] Health Maintenance Due Date Last Done Comments [...] (ABNORMAL) COMPREHENSIVE METABOLIC PANEL (08/10/2023 11:07 AM [facility]) BUN 12 7 - 26 mg/dL 08/10/2023 11:45 AM [facility] Creatinine 0.55(L) 0.56 - 0.96 mg/dL 08/10/2023 11:45 AM [facility] Sodium 139 136 - 145 mmol/L 08/10/2023 11:45 AM [facility] Potassium 3.6 3.5 - 4.5 mmol/L 08/10/2023 11:45 AM [facility] Chloride 106 98 - 107 mmol/L 08/10/2023 11:45 AM [facility] CO2 25 22 - 29 mmol/L 08/10/2023 11:45 AM [facility] Glucose 100 70 - 115 mg/dL 08/10/2023 11:45 AM [facility] Calcium 9.2 8.4 - 10.2 mg/dL 08/10/2023 11:45 AM [facility] Protein Total 6.9 6.0 - 8.3 g/dL 08/10/2023 11:45 AM [facility] Albumin 3.7 3.4 - 5.0 g/dL 08/10/2023 11:45 AM [facility] Bilirubin Total 0.7 0.2 - 1.2 mg/dL 08/10/2023 11:45 AM [facility] Alkaline Phosphatase 74 40 - 150 U/L 08/10/2023 11:45 AM [facility] ALT 13 5 - 55 U/L 08/10/2023 11:45 AM [facility] AST 14 5 - 34 U/L 08/10/2023 11:45 AM [facility] Anion Gap 8 6 - 16 08/10/2023 11:45 AM [facility] BUN/Creatinine Ratio 22 7 - 23 08/10/2023 11:45 AM [facility] Osmolality Calculated 288 275 - 295 mOsm/kg 08/10/2023 11:45 AM [facility] Albumin/Globulin Ratio 1.2 1.1 - 2.3 08/10/2023 11:45 AM CDT [facility] eGFR by CKD-EPI >90 >=90 mL/min/1.7 3 m2 08/10/2023 11:45 AM CDT [facility] Blood BLOOD SPECIMEN / Unknown Lab Venipuncture / Unknown 08/10/2023 11:07 AM CDT 08/10/2023 11:16 AM CDT Provider Unknown LAB - CHEMISTRY KONSTANTIN ROGERS [facility] [address] [place] [address], [facility] [phone] * ENDOSCOPY, COLON, SCREENING (08/10/2022 10:16 AM [...] bowel preparation was evaluated using the BBPS ([place] Bowel Preparation Scale) with scores of: Right [...] non-ko portions. Procedure Code(s): --- Professional --- 94209, Colonoscopy, flexible; with biopsy, single or multiple Diagnosis Code(s): --- Professional --- Z98.0, Intestinal bypass and anastomosis status K50.80, Crohn's disease of both small and large intestine without complications CPT copyright 2019 [employer]. All rights reserved. The codes documented in this report are preliminary and upon lens coater review may be revised to meet current compliance requirements. Tennille Young MD ([place]) 08/10/2022 11:14:16 AM Note Initiated On: 08/10/2022 10:16 AM Number of Addenda: [address] [id number] [facility] 08/10/2022 10:1 6 AM CDT Tennille Young MD GI PROCEDURE ORDE KEN [facility] * (ABNORMAL) LIPID PROFILE (EXTERAL RESULT [...] 11:27 PM 03/12/2019 11:25 AM Care Teams Visiting Nurse Relationship Specialty Start Date End Date Leroy Jensen DO PCP - General 02/01/16
--- OUTSIDE RECORDS SUMMARY | 2024-08-05 13:46 | XMS_ITS | Encounter Summary ---
Author Organization [facility] Address [facility] [facility] [place] [address] Care Team Providers Care Javascript Software Engineer Name Role Phone Leroy Jensen DO Primary Care Provider [phone] Reason for Visit * Reason Onset Date Comments Results 11/11/2019 Encounter Details Date Type Department Care Team (Late st Contact Info) Description 11/11/2019 Telephone [facility] [address] [place] [address] Aflredo Robles MD [address] [facility] [address] [place] [address] Results Social History Tobacco Use Types Packs/Day [...] results. Please call pt at cell # [phone]. Please call patient. Charlene Kelly Senior Patient Wood Lathe Operator Department of Dermatology, Mohs Surgery and Cutaneous Oncology [facility] Dermatology [facility] documented in this encounter Plan of Treatment Upcoming Encounters Date Type Department Care Team (Late st Contact Info) Description 08/30/2024 10:20 AM CDT Office Visit [facility] - Dermatology [address] [place] [address], [place] [address] Alfredo Robles MD [address] [place] [address] [address] [place] [address] documented as of this encounter Goals Goal [...] documented as of this encounter Care Teams Javascript Software Engineer Relationship Specialty Start Date End Date Leroy Jensen DO PCP - General 02/01/16 documented as of this encounter
--- OUTSIDE RECORDS SUMMARY | 2024-08-05 13:46 | XMS_ITS ---
Author Organization [facility] Address [address] 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 Condyloma acuminata 06/16/2019 Assessment & Plan (06/12/2020 9:22 AM TELEVISION STATION MANAGER): x2 in perianal region today - [...] 019 Assessment & Plan (06/12/2020 9:27 AM TELEVISION STATION MANAGER): Bilateral palms - Ddx: 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 If intervention is indicated, will make arrangements at that time Lentigines 05/09/2018 Assessment & Plan (06/12/2020 9:27 AM TELEVISION STATION MANAGER): - Benign, patient reassured - Skin [...] treatments are [facility]. Treatments may have been administered in another system. Lifetime Dose Tracking * Chemical Lifetime Dose Automatic Entry Manual Entr y Dose Length Product 1,054 mGy-cm 1,054 mGy-cm 0 mGy-cm Resolved Problems Problem Noted Date Diagnosed Date Resolved Date SCC (squamous cell carcinoma), leg, right 07/07/2020 07/07/2020
[2024-08-05 14:45] VITALS: BP 132/79; PULSE 66; RESP 18; TEMP 36.7; O2SAT 98
== END 2024-08-05 15:48 | disposition home or self-care (01) ==
PROVIDERS: Emergency Provider Physician Assistant; PCP Internal Medicine
DX: N20.1 Calculus of ureter (principal); N39.0 Urinary tract infection, site not specified; K50.90 Crohn's disease, unspecified, without complications; K21.9 Gastro-esophageal reflux disease without esophagitis; G25.81 Restless legs syndrome; M79.7 Fibromyalgia; M19.042 Primary osteoarthritis, left hand; M19.041 Primary osteoarthritis, right hand; Z87.442 Personal history of urinary calculi; Z85.828 Personal history of other malignant neoplasm of skin; Z87.891 Personal history of nicotine dependence; Z90.49 Acquired absence of other specified parts of digestive tract; R93.2 Abnormal findings on diagnostic imaging of liver and biliary tract; R93.89 Abnormal findings on diagnostic imaging of other specified body structures
CPT/HCPCS: 36415; 74177; 80053; 81001; 83690; 85025; 87040; 87086; 96361; 96365; 96375; 96376; 99284; J0696; J1171; J7030; Q9967

== ENCOUNTER 2024-09-17 11:16 | Outpatient (CLI) | payer BC, SELFPAY ==
--- NOTE | ~2024-09-17 | XR_ITS ---
Thoracic spine: Clinical Indication: Status post fall AP and lateral views were performed. No fracture is seen. There is normal alignment of the vertebrae. The intervertebral disc spaces appe ar normal. Paravertebral soft tissues appear normal. Impression: No significant abnormalities noted. Reviewed, dictated and finalized at [facility]. Impression: No significant abnormalities noted.
== END 2024-09-17 11:17 | disposition home or self-care (01) ==
PROVIDERS: PCP Nurse Practitioner; Visit Provider Nurse Practitioner
DX: M54.9 Dorsalgia, unspecified (principal); W19.XXXA Unspecified fall, initial encounter
CPT/HCPCS: 72070

== ENCOUNTER 2024-12-16 10:00 | Outpatient (CLI) | payer BC, SELFPAY ==
--- NOTE | ~2024-12-16 | MM_ITS ---
EXAMINATION: MM screening chele BI w chuckie HISTORY: Screening mammogram TECHNIQUE: Craniocaudal and mediolateral oblique 3-D tomosynthesis images were obtained and synthetic 2-D images were generated. CAD analysis was submitted and interpreted. COMPARISON: 06/26/2023, 01/27/2022 BREAST PARENCHYMAL COMPOSITION:Dense: The breasts are heterogeneously dense, which may obscure small masses. FINDINGS: There is a probable ovoid mass at the upper, outer right breast, middle depth. Stable paren chymal appearance of the left breast. No suspicious microcalcifications. IMPRESSION: Ovoid mass at the upper, outer right breast. Spot compression views and ultrasound are recommended fo r further evaluation. BI-RADS Category 0: Incomplete: Needs additional imaging evaluation. Reviewed, dictated and finalized at [facility]. IMPRESSION: Ovoid mass at the upper, outer right breast. Spot compression views and ultraso und are recommended for further evaluation. BI-RADS Category 0: Incomplete: Needs additional imaging evaluation.
--- OUTSIDE RECORDS SUMMARY | 2024-12-16 10:58 | XMS_ITS ---
Author Organization [facility] Address 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 Condyloma acuminata 06/16/2019 Assessment & Plan (06/12/2020 9:22 AM TRANSFORMER COIL WINDER): x2 in perianal region today - Patient [...] 019 Assessment & Plan (06/12/2020 9:27 AM TRANSFORMER COIL WINDER): Bilateral palms - Ddx: 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 If intervention is indicated, will make arrangements at that time Lentigines 05/09/2018 Assessment & Plan (06/12/2020 9:27 AM TRANSFORMER COIL WINDER): - Benign, patient reassured - Skin cancer, sun protection, and photoaging discussed Crohn's disease without complication 05/16/2017 Overview (07/31/2017): Per written order 04/05/2017 Mixed irritable bowel syndrome 04/05/2017 Gastro-esophageal reflux disease without esophag itis 04/05/2017 Acquired absence of other sp ecified parts of digestive tract 04/05/2017 Major depressive disorder, single episode 2016 Anxiety disorder 04/05/2017 Current Treatment and Therapy Plans No current plan information found. Other Current Plans RISANKIZUMAB (SKYRIZI) CROHN'S INDUCTION IVPB THERAPY PLAN* Plan Start Date: 09/07/2023 Plan Provider:Adalgisa Salguero APRN-CAROLYN Linked Problems Crohn's disease without comp lication, unspecified gastrointestinal tract location (HCC) Treatment Medications No medications scheduled. Past Treatment and Therapy Plans Lifetime Dose Tracking * Chemical Lifetime Dose Automatic Entry Manual Entr y Dose Length Product 1,054 mGy-cm 1,054 mGy-cm 0 mGy-cm Resolved Problems Problem Noted Date Diagnosed Date Resolved Date SCC (squamous cell carcinoma), leg, right 07/07/2020 07/07/2020
--- OUTSIDE RECORDS SUMMARY | 2024-12-16 10:58 | XMS_ITS ---
Sister Social History Tobacco Use Types Packs/Day Years Used Date Smoking Tobacco: Former Cigarettes 1 14 1 993 - 05/01/2006 Smokeless Tobacco: Never Tobacco Cessation:Counseling Given: Not Answered Alcohol Use Standard Drinks/Week Comments No 0 (1 standard drink = 0.6 oz pur e alcohol) Comments No Sex and Gender Information Value Date Recorded Sex Assigned at Not on file Legal Sex Female 5:12 PM CANNON PINION ADJUSTER Gender Identity Not on file Sexual Orientation [...] 7:26 AM CDT Height 165.1 cm (5' 5) 10/10/2023 7:26 AM CDT Body Mass Index 25.28 10/10/2023 7:26 AM CDT Plan of Treatment Health Maintenance Due Date Last Done Comments COLOGUARD (AGES 45-75) - COLON CA SCREENING 1972 CT COLONOGRAPHY - COLON CA SCREENING 1972 FIT - COLON CA SCREENING 1972 FLEX SIG - COLON CA SCREENING 1972 MAMMOGRAM 1972 HIV SCREENING 1987 HEPATITIS C SCREENING 06/06/1990 PAP SMEAR 1993 ZOSTER VACCINE (1 of 2) 2022 PNEUMOCOCCAL VACCINE 50+ (3 of 3 - PCV20 or PCV21) 07/05/2023 07/04/2018, 04/05/2017 COVID-19 VACCINE (4 - season) 2023 05/14/2021, 08/16/2020, 07/26/2020 LIPID TESTING 02/12/2024 02/11/2019 DEPRESSION SCREENING 05/01/2024 INFLUENZA VACCINE (#1) 2024 03/11/2019, 2016 SCREENING FOR DIABETES 08/09/2026 , 03/10/2019, 07/04/2018, Additional history exists DTAP/TDAP/TD VACCINES (2 - Td or Tdap) 08/08/2032 08/08/2022 COLON MONITORING 10/09/2033 10/10/2023, 03/2024, 08/10/2022, Additional history exists COLONOSCOPY - COLON CA SCREENING 10/09/2033 10/10/2023, 10/10/2023, 08/10/2022, Additional history exists Colorectal Cancer Screening [...] On track( 024 4:18 PM CDT) Leni Romo, JOANNE Note: Expected end date: Ongoing Interventions: Take all medications as prescribed Let your doctor know right away about any changes in your medications Procedures Procedure Name Priority Date/Time Associated Diagnosis Comments ENDOSCOPY, COLON, DIAGNOSTIC Routine 10/10/2023 7:46 AM CDT COMPREHENSIVE METABOLIC PANEL Routine 08/10/2023 11:07 AM CDT Crohn's disease without complication, unspecified gastrointestinal tract location LIPID PROFILE (EXTERAL RESULT ENTRY) Routine 02/11/2019 from Last 3 Months or Most Recently Relevant to Health Maintenance Results * ENDOSCOPY, COLON, DIAGNOSTIC (10/10/2023 7:46 AM CDT) Report Endoscopy POC Endoscopy Department Report _ Patient Name: Summer York Procedure Date: 10/10/2023 7:46 AM Date of : 1970 Classification: Outpatient Gender: Female Ethnicity: Not or Race: White _ Providers: Quan Cummins MD, Adalgisa Sumner (Fellow) Referring MD: Procedure: Colonoscopy Indications: For therapy of Crohn's disease of the small bowel and colon, Abnormal CTE of the GI tract showing suspected stricture Medications: Monitored Anesthesia Care Patient Profile: This is a 53 year old female with suspected colonic stricture, hx ileocolonic Crohn's s/p hemicolectomy and ileocolonic anastomosis. Description of Procedure: After I obtained informed consent, the scope was passed under direct vision. Throughout the procedure, the patient's blood pressure, pulse, and oxygen saturations were monitored continuously. The Endoscope was introduced through the anus and advanced to the terminal ileum. The colonoscopy was performed without difficulty. The patient tolerated the procedure well. The quality of the bowel preparation was evaluated using the BBPS (Traer Bowel Preparation Scale) with scores of: Right Colon = 3 (entire mucosa seen well with no residual staining, small fragments of stool or opaque liquid), Transverse Colon = 2 (minor amount of residual staining, small fragments of stool and/or opaque liquid, but mucosa seen well) and Left Colon = 3 (entire mucosa seen well with no residual staining, small fragments of stool or opaque liquid). The total BBPS score equals 8. Findings: Skin tags were found on perianal exam. There was evidence of a patent [id number] ileo-colonic anastomosis with an inner diameter of around 12 mm. It was viewed in retroflexion and was characterized by erosions. This was traversed before and after dilation. A TTS dilator was passed through the scope. A 10-12 mm balloon resulted no dilation/resistanc e. A 12-13.5-15 mm balloon dilation was performed to 15 mm. The dilation site was examined and showed mild mucosal disruption and complete resolution of luminal narrowing. This was biopsied with a cold forceps for histology. Proximal to this stricture is a mildly dilated surgically altered loop of small bowels. One to 2 cm proximal to that stricture is another stricture (likely representing ileo-ileal anastomosis) measuring about 6 mm. This was characterized by erosion, erythema and ulceration. This was traversed after dilation only. A TTS dilator was passed through the scope. Dilation with a 10-11-12 mm balloon dilator was performed to 12 mm. Moderate disruption of the mucosa was encountered. This was biopsied with a cold forceps for histology. Four aphthus ulcers in the ileal mcuosa with Rutgeert score of i1. Biopsies were taken with a cold forceps for histology. A mild but widely patent stenosis measuring 2 cm (in diameter) was found in the descending colon and was traversed. Biopsies were taken with a cold forceps for histology. Estimated Blood Loss: Estimated blood loss was minimal. Complications: No immediate complications. Impression: - Perianal skin tags found on perianal exam. - Ileocolonic anastomotic stricture mostly, measuring < 5 mm, and is mostly fibrotic despite likely ischemic erosive changes. Dilated to 15 mm. Biospied. - Mildly dilated loop of small bowels upstream from the stricture. Four aphthus ulcers noted. Biospied. - Proximal to that striture is another stricture, likely enteroenteric anastomosis. Tight. Likely mostly fibrotic despite ischemic erosive changes. Dilated to 12 mm. Biopsied. - Patent Stricture in the descending colon. Biopsied. Recommendation: - Patient has a contact number available for emergencies. The signs and symptoms of potential delayed complications were discussed with the patient. Return to normal activities tomorrow. Written discharge instructions were provided to the patient. - Low fiber diet and low residue diet. - Await pathology results. - Follow up with Dr Aguilar. Further dilation may be considered based on symptomatic response. Attending Participation: I was present and participated during the entire procedure, including non-ko portions. Procedure Code(s): --- Professional --- 48839, 22, Colonoscopy, flexible; with transendoscopic balloon dilation 33496, Colonoscopy, flexible; with transendoscopic balloon dilation 32058, Colonoscopy, flexible; with biopsy, single or multiple Diagnosis Code(s): --- Professional --- K91.89, Other postprocedural complications and disorders of digestive system K63.89, Other specified diseases of intestine K50.812, Crohn's disease of both small and large intestine with intestinal obstruction K64.4, Residual hemorrhoidal skin tags R93.3, Abnormal findings on diagnostic imaging of other parts of digestive tract CPT copyright 2021 [employer]. All rights reserved. The codes documented in this report are preliminary and upon certified coder review may be revised to meet current compliance requirements. Quan Cummins MD, 10/10/2023 11:07:11 AM This report has been signed electronically. Note Initiated On: 10/10/2023 7:46 AM Number of Addenda: [address] [id number] [facility] 10/10/2023 7:46 AM CDT us Quan Cummins MD GI PROCEDURE ORDERABLES Edited R esult - Final [facility] * (ABNORMAL) COMPREHENSIVE METABOLIC PANEL (08/10/2023 11:07 AM CDT) BUN 12 7 - 26 mg/dL 08/10/2023 11:45 AM CDT [facility] Creatinine 0.55(L) 0.56 - 0.96 mg/dL 08/10/2023 11:45 AM CDT [facility] Sodium 139 136 - 145 mmol/L 08/10/2023 11:45 AM [facility] Potassium 3.6 3.5 - 4.5 mmol/L 08/10/2023 11:45 AM [facility] Chloride 106 98 - 107 mmol/L 08/10/2023 11:45 AM [facility] CO2 25 22 - 29 mmol/L 08/10/2023 11:45 AM [facility] Glucose 100 70 - 115 mg/dL 08/10/2023 11:45 AM [facility] Calcium 9.2 8.4 - 10.2 mg/dL 08/10/2023 11:45 AM [facility] Protein Total 6.9 6.0 - 8.3 g/dL 08/10/2023 11:45 AM [facility] Albumin 3.7 3.4 - 5.0 g/dL 08/10/2023 11:45 AM [facility] Bilirubin Total 0.7 0.2 - 1.2 mg/dL 08/10/2023 11:45 AM [facility] Alkaline Phosphatase 74 40 - 150 U/L 08/10/2023 11:45 AM [facility] ALT 13 5 - 55 U/L 08/10/2023 11:45 AM [facility] AST 14 5 - 34 U/L 08/10/2023 11:45 AM [facility] Anion Gap 8 6 - 16 08/10/2023 11:45 AM [facility] BUN/Creatinine Ratio 22 7 - 23 08/10/2023 11:45 AM [facility] Osmolality Calculated 288 275 - 295 mOsm/kg 08/10/2023 11:45 AM [facility] Albumin/Globulin Ratio 1.2 1.1 - 2.3 08/10/2023 11:45 AM [facility] eGFR by CKD-EPI >90 >=90 mL/min/1.7 3 m2 08/10/2023 11:45 AM [facility] Blood BLOOD SPECIMEN / Unknown Lab Venipuncture / Unknown 08/10/2023 11:07 AM CDT 08/10/2023 11:16 AM CDT us Provider Unknown LAB - CHEMISTRY ORDERABLES Pilar l Result [facility] [address] [place] [address], [facility] [phone] * (ABNORMAL) LIPID PROFILE (EXTERAL RESULT ENTRY) (02/11/2019) Cholesterol (EXTERNAL RESULT) 150 100 - 199 mg/dL Triglycerides (EXTERNAL RESULT) 215(A) 0 - 149 mg/dL HDL (EXTERNAL RESULT) 52 >39 mg/dL LDL (EXTERNAL RESULT) 55 0 - 99 mg/dL VLDL (EXTERNAL RESULT) 43(A) 5 - 40 mg/dL Chol HDL Ratio (External Result) Blood BLOOD SPECIMEN / Unknown 02/11/2019 us Historical Provider MD LAB - CHEMISTRY ORDERABLE S Final Result from Last 3 Months or Most Recently Relevant to Health Maintenance Insurance [facility] Advance Directives * Full Code (Latest Code Status on File) Date Activated Date Inactivated Comments 03/10/2019 11:27 PM 03/12/2019 11:25 AM Care Teams Front Office Specialist Relationship Specialty Start Date End Date Leroy Jensen DO [facility] - General 02/01/16
--- OUTSIDE RECORDS SUMMARY | 2024-12-16 10:58 | XMS_ITS | Encounter Summary ---
Author Organization [facility] Address [facility] [facility] [place] [address] Care Team Providers Care Hydrocrane Operator Name Role Phone Leroy Jensen DO Primary Care Provider Reason for Visit * Reason Onset Date Comments Results 11/11/2019 Encounter Details Date Type Department Care Team (Late st Contact Info) Description 11/11/2019 Telephone [facility] [address] [place] [address] Alfredo Robles MD [address] [facility] [address] [place] [address] Results Social History Tobacco Use Types Packs/Day Years Used Date Smoking Tobacco: Former Cigarettes 1 14 1 993 - 05/01/2006 Smokeless Tobacco: Never Alcohol Use Standard Drinks/Week Comments No 0 (1 standard drink = 0.6 oz pur e alcohol) Comments No Sex and Gender Information Value Date Recorded Sex Assigned at Not on file Legal Sex Female 5:12 PM PRODUCTION ENGINEER TRACK Gender Identity Not on file Sexual Orientation Not on file documented as of this encounter Functional Status * Is person deaf or have serious hearing difficulty? Answer Date of Assessment Author No 03/10/2019 10:58 PM PRODUCTION ENGINEER TRACK Vicki Kern RN * Is person blind or have serious difficulty seeing? Answer Date of Assessment Author No 03/10/2019 10:58 PM Vicki Bragg RN * Does person have serious difficulty walking/climbing stairs? Answer Date of Assessment Author No 03/10/2019 10:58 PM Vicki Bragg RN * Does person have difficulty dressing/bathing? Answer Date of Assessment Author No 03/10/2019 10:58 PM Vicki Bragg RN * Does person have difficulty doing errands alone? Answer Date of Assessment Author No 03/10/2019 10:58 PM Vicki Bragg RN documented as of this encounter Mental Status * Does person have difficulty concentrating/remembering/making decisions? Answer Entry Date Author No 03/10/2019 10:58 PM Vicki Bragg RN documented in this encounter Miscellaneous Notes * Telephone Encounter - Rebeka Kelly - 11/11/2019 9:26 AM CDT Patient called asking for biopsy results. Pt believes she missed a call from us with BX results. Please call pt at cell # [phone]. Please call patient. Charlene Kelly Senior Patient Ski Lift Attendant Department of Dermatology, Mohs Surgery and Cutaneous Oncology [facility] Dermatology [facility] documented in this encounter Plan of Treatment Not on file documented as of this encounter Goals Goal [...] documented as of this encounter Care Teams Hydrocrane Operator Relationship Specialty Start Date End Date Leroy Jensen DO PCP - General 02/01/16 documented as of this encounter
== END 2024-12-16 10:01 | disposition home or self-care (01) ==
LOC: ANHIMG 10:01
PROVIDERS: PCP Nurse Practitioner; Visit Provider Internal Medicine
DX: Z12.31 Encounter for screening mammogram for malignant neoplasm of breast (principal); Z78.0 Asymptomatic menopausal state; R92.8 Other abnormal and inconclusive findings on diagnostic imaging of breast
CPT/HCPCS: 77063; 77067

== ENCOUNTER 2024-12-24 09:44 | Outpatient (CLI) | payer BC, SELFPAY ==
--- NOTE | ~2024-12-24 | MMUS_ITS ---
EXAMINATION: MM diagnostic chele RT w chuckie, US breast RT limited INDICATION: 54-year old female; BI-RADS 0, callback to evaluate Right breast mass COMPARISON: 12/16/2024 TECHNIQUE: Digital breast tomosynthesis ML and spot compression CC and MLO views of right breast were obtained with computer-aided detection to assist in interpretation of the study. FINDINGS: There are scattered areas of fibroglandular density. The mass of concern in the outer central at at posterior third within the right breast persisted as a circumscribed mass. Ultrasound was performed for further evaluation. RIGHT BREAST ULTRASOUND FINDINGS: Targeted evaluation of the area of concern completed showed a 1.1 x 1.1 x 0.4 cm solid hypoechoic mass with circumscribed margins at 10:00, 3 cm from the nipple location. The lesion correlates to the area of mammographic finding. IMPRESSION: Suspicious right breast mass at 10:00 location that correlates to mammography finding. Recommendation: Ultrasound-guided core needle biopsy of right breast mass at 10:00 location. BI-RADS 4, SUSPICIOUS Reviewed, dictated and finalized at location B. IMPRESSION: Suspicious right breast mass at 10:00 location that correlates to m ammography finding. Recommendation: Ultrasound-guided core needle biopsy of right breast mass at 10:00 location. BI-RADS 4, SUSPICIOUS
--- OUTSIDE RECORDS SUMMARY | 2024-12-24 10:02 | XMS_ITS ---
Author Organization [facility] Address [address] 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 Condyloma acuminata 06/16/2019 Assessment & Plan (06/12/2020 9:22 AM CHIEF LIBRARIAN WORK WITH BLIND): x2 in perianal region today - Patient [...] 019 Assessment & Plan (06/12/2020 9:27 AM CHIEF LIBRARIAN WORK WITH BLIND): Bilateral palms - 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 If intervention is indicated, will make arrangements at that time Lentigines 05/09/2018 Assessment & Plan (06/12/2020 9:27 AM CHIEF LIBRARIAN WORK WITH BLIND): - Benign, patient reassured - Skin cancer, [...]
--- OUTSIDE RECORDS SUMMARY | 2024-12-24 10:02 | XMS_ITS | Encounter Summary ---
Author Organization [facility] Address [facility] [facility] [place] [address] Care Team Providers Care Conflict Resolution Professional Name Role Phone Leroy Jensen DO Primary Care Provider [phone] Reason for Visit * Reason Onset Date Comments Results 11/11/2019 Encounter Details Date Type Department Care Team (Late st Contact Info) Description 11/11/2019 Telephone [facility] [address] [place] [address] Alfredo Robles MD [address] [facility] [address] [place] [address] Results Social History Tobacco Use Types Packs/Day Years Used Date Smoking Tobacco: Former Cigarettes 1 14 1 993 - 05/01/2006 Smokeless Tobacco: Never Alcohol Use Standard Drinks/Week Comments No 0 (1 standard drink = 0.6 oz pur e alcohol) Comments No Sex and Gender Information Value Date Recorded Sex Assigned at Not on file Legal Sex Female 5:12 PM FIRE CODE INSPECTOR Gender Identity Not on file Sexual Orientation Not on file documented as of this encounter Functional Status * Is person deaf or have serious hearing difficulty? Answer Date of Assessment Author No 03/10/2019 10:58 PM FIRE CODE INSPECTOR Vicki Kern RN * Is person blind or have serious difficulty seeing? Answer Date of Assessment Author No 03/10/2019 10:58 PM Vicki Bragg RN * Does person have serious difficulty walking/climbing stairs? Answer Date of Assessment Author No 03/10/2019 10:58 PM Vicki rBagg RN * Does person have difficulty dressing/bathing? [...] results. Please call pt at cell # [phone]. Please call patient. Charlene Kelly Senior Patient Slot Floor Supervisor Department of Dermatology, Mohs Surgery and Cutaneous Oncology [facility] Dermatology [facility] documented in this encounter Plan of Treatment [...] documented as of this encounter Care Teams Conflict Resolution Professional Relationship Specialty Start Date End Date Leroy Jensen DO PCP - General 02/01/16 documented as of this encounter
--- OUTSIDE RECORDS SUMMARY | 2024-12-24 10:03 | XMS_ITS | Clinical Summary ---
Author Organization [facility] Address [address] [place] [address] Care Team Providers Care Tool Turret Lathe Set Up Operator Name Role Phone Leory Jensen DO Primary Care Provider [phone] Source Comments [facility],non-owned Affiliates and Associated Physician Practices is amultiple site organization consisting of ambulatory clinics and hospital sitesin [place], [place], [place] and [place]. This disclosure is being madepursuant to the Care Everywhere program and may not contain all information available regarding this patient. Last updated 18.[facility] Allergies Active Allergy Reactions Criticality Noted Date Comments Methylene Blue Other Low 06/01/2017 Methylene blue is contraindicated in patients taking nortriptyline. Morphine Headache Medium 08/10/2022 Medications * Be aware that medications may not be up to date on this document. Alwaysverify current medications with the patient. vitamin D3 (CHOLECALCIFEROL ) 25 MCG (1000 UT) tablet Take 2 (two) tablets by mouth once daily Active ibuprofen (MOTRIN) 600 MG tablet Take 1 (one) tablet by mouth once as needed (migraine headaches) Active pramipexole (Mirapex) 1 MG tablet Take 2 (two) tablets by mouth once daily Active Multiple Vitamins-Mineral s (MULTIVITAMIN ADULT PO) Take 1 tablet by mouth once daily Active Myrbetriq 25 MG tablet Take 1 (one) tablet by mouth once daily 3 Active Cholestyramine 4 GM/DOSEIndicatio ns:Bile salt-induced diarrhea (HCC) Take 4 (four) g by mouth once daily 378 g 1 4 Active Additional Information Patient not taking.Reported on 10/10/2023 omeprazole (PriLOSEC) 40 MG capsuleIndicatio ns:Gastro-esopha geal reflux disease without esophagitis Take 1 (one) capsule by mouth 2 times daily, before breakfast and supper for 60 days, THEN 1 (one) capsule daily before breakfast for 90 days. 210 capsule 4 Active budesonide (Entocort EC) 3 MG capsuleIndicatio ns:Crohn's disease of colon with complication (HCC) Take 3 (three) capsules by mouth once daily for 28 days, THEN 2 (two) capsules once daily for 14 days, THEN 1 (one) capsule once daily for 14 days. 126 capsule 4 Active Additional Information Patient not taking.Reported on 10/10/2023 polyethylene glycol (Golytely) 236 g solution Drink all of the prep at 6pm the night before colonoscopy. Please finish all of the prep before going to bed. 4000 mL 4 Active pantoprazole (Protonix) 40 MG injection 3 Active clobetasol (Temovate) 0.05 % ointmentIndicati ons:Prurigo nodularis Apply to thick itchy bumps on legs twice daily until resolved. 30 days supply. 60 g 3 5 Active ketoconazole (Nizoral) 2 % creamIndications :Tinea pedis of both feet Apply to rash on the feet and between toes twice daily. 30 days supply. 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 -Wound care instructions reviewed and provided -Home care instructions reinforced- apply salicylic acid (Compound W, Dr. Boschs, etc) at home to verruca overnight. Remove in the morning and file down with disposable emery board then discard used emery board. Discontinue or hold treatment if significant discomfort occurs. 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 Condyloma acuminata 06/16/2019 Assessment & Plan (06/12/2020 9:22 AM ACTIVITIES ASSISTANT): x2 in perianal region today - Patient [...] 019 Assessment & Plan (06/12/2020 9:27 AM ACTIVITIES ASSISTANT): Bilateral palms - Ddx: punctate-type palmoplantar keratoderma vs palmoplantar porokeratosis, likely in setting of immunosuppression - Start OTC Cerave anti-itch and Amlactin PRN TID Prurigo papule 12/21/2018 History of nonmelanoma skin cancer 05/09/2018 Melanocytic nevi of trunk 05/09/2018 Actinic keratosis 05/09/2018 Neoplasm of uncertain behavior of skin 9 Assessment & Plan (06/12/2020 9:23 AM ACTIVITIES ASSISTANT): - Location: right superior baker, 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 If intervention is indicated, will make arrangements at that time Lentigines 05/09/2018 Assessment & Plan (06/12/2020 9:27 AM ACTIVITIES ASSISTANT): - Benign, patient reassured - Skin cancer, [...] (squamous cell carcinoma), leg, right 07/07/2020 07/07/2020 Immunizations Immunization Administration Dates Next Due Parastructure primary monoval ent 12+ yr 0.3mL Purple [...] on file Legal Sex Female 5:12 PM ACTIVITIES ASSISTANT Gender Identity Not on file Sexual Orientation [...] bowel preparation was evaluated using the BBPS (What Cheer Bowel Preparation Scale) with scores of: Right [...] exam. There was evidence of a patent [id number] ileo-colonic anastomosis with an inner diameter of [...] non-ko portions. Procedure Code(s): --- Professional --- 71076, 22, Colonoscopy, flexible; with transendoscopic balloon dilation 43589, Colonoscopy, flexible; with transendoscopic balloon dilation 21489, Colonoscopy, flexible; with biopsy, single or multiple Diagnosis Code(s): --- Professional --- K91.89, Other postprocedural complications and disorders of digestive system K63.89, Other specified diseases of intestine K50.812, Crohn's disease of both small and large intestine with intestinal obstruction K64.4, Residual hemorrhoidal skin tags R93.3, Abnormal findings on diagnostic imaging of other parts of digestive tract CPT copyright 2021 [employer]. All rights reserved. The codes documented in this report are preliminary and upon exhibit builder review may be revised to meet current compliance requirements. Quan Cummins MD, 10/10/2023 11:07:11 AM This report has been signed electronically. Note Initiated On: 10/10/2023 7:46 AM Number of Addenda: [address] [id number] [facility] 10/10/2023 7:46 AM CDT us Quan Cummins MD GI PROCEDURE ORDERABLES Edited R esult - Final [facility] * (ABNORMAL) COMPREHENSIVE METABOLIC PANEL (08/10/2023 11:07 AM CDT) BUN 12 7 - 26 mg/dL 08/10/2023 11:45 AM CDT [facility] Creatinine 0.55(L) 0.56 - 0.96 mg/dL 08/10/2023 11:45 AM [facility] Sodium 139 136 - 145 mmol/L 08/10/2023 11:45 AM [facility] Potassium 3.6 3.5 - 4.5 mmol/L 08/10/2023 11:45 AM [facility] Chloride 106 98 - 107 mmol/L 08/10/2023 11:45 AM [facility] CO2 25 22 - 29 mmol/L 08/10/2023 11:45 AM [facility] Glucose 100 70 - 115 mg/dL 08/10/2023 11:45 AM [facility] Calcium 9.2 8.4 - 10.2 mg/dL 08/10/2023 11:45 AM [facility] Protein Total 6.9 6.0 - 8.3 g/dL 08/10/2023 11:45 AM [facility] Albumin 3.7 3.4 - 5.0 g/dL 08/10/2023 11:45 AM [facility] Bilirubin Total 0.7 0.2 - 1.2 mg/dL 08/10/2023 11:45 AM [facility] Alkaline Phosphatase 74 40 - 150 U/L 08/10/2023 11:45 AM [facility] ALT 13 5 - 55 U/L 08/10/2023 11:45 AM [facility] AST 14 5 - 34 U/L 08/10/2023 11:45 AM [facility] Anion Gap 8 6 - 16 08/10/2023 11:45 AM [facility] BUN/Creatinine Ratio 22 7 - 23 08/10/2023 11:45 AM [facility] Osmolality Calculated 288 275 - 295 mOsm/kg 08/10/2023 11:45 AM [facility] Albumin/Globulin Ratio 1.2 1.1 - 2.3 08/10/2023 11:45 AM [facility] eGFR by CKD-EPI >90 >=90 mL/min/1.7 3 m2 08/10/2023 11:45 AM [facility] Blood BLOOD SPECIMEN / Unknown Lab Venipuncture / Unknown 08/10/2023 11:07 AM T 08/10/2023 11:16 AM CDT us Provider Unknown LAB - CHEMISTRY ORDERABLES Pilar munson Result [id number] [place] [address], [facility] [phone] * (ABNORMAL) LIPID PROFILE (EXTERAL RESULT ENTRY) (02/11/2019) Cholesterol (EXTERNAL RESULT) 150 100 - 199 mg/dL Triglycerides (EXTERNAL RESULT) 215(A) 0 - 149 mg/dL HDL (EXTERNAL RESULT) 52 >39 mg/dL LDL (EXTERNAL RESULT) 55 0 - 99 mg/dL VLDL (EXTERNAL RESULT) 43(A) 5 - 40 mg/dL Chol HDL Ratio (External Result) Blood BLOOD SPECIMEN / Unknown 02/11/2019 us Historical Provider LAB - CHEMISTRY ORDERABLE S Final Result from Last 3 Months or Most Recently Relevant to Health Maintenance Insurance [facility] Advance Directives * Full Code (Latest Code Status on File) Date Activated Date Inactivated Comments 03/10/2019 11:27 PM 03/12/2019 11:25 AM Care Teams Tool Turret Lathe Set Up Operator Relationship Specialty Start Date End Date Leroy Jensen DO PCP - General 02/01/16
== END 2024-12-24 09:45 | disposition home or self-care (01) ==
PROVIDERS: PCP Nurse Practitioner; Visit Provider Nurse Practitioner
DX: N64.89 Other specified disorders of breast (principal); R92.8 Other abnormal and inconclusive findings on diagnostic imaging of breast
CPT/HCPCS: 76642; 77061; 77065; G0279

== ENCOUNTER 2025-01-09 09:10 | Outpatient (CLI) | payer BC, SELFPAY ==
--- NOTE | ~2025-01-09 | US_ITS ---
EXAMINATION: US breast biopsy RT w image INDICATION: 54 year old female with suspicious right breast mass at 10:00. She presents for ultrasound-guided core needle biopsy procedure. TECHNIQUE: Sonographic imaging of the right breast redemonstrated the hypoechoic circumscribed hypoechoic mass at 10:00, 3 cm from the nipple. This lesion appears cystic on this examination. Decision was made to attempt an aspiration. The cyst at the 10:00, 3 cm from the nipple is targeted for aspiration. The procedure and its risk and benefits were discussed with the patient. Risks included but were not limited to pain, bleeding and infection. The patient verbalized understanding and provided written consent. A time-out was performed to document the patient's name, date of , and site of procedure. The upper outer quadrant of the patient's right breast was prepped and draped in usual sterile fashion. 1% lidocaine was used for local anesthesia. Utilizing ultrasound guidance, a 18-gauge needle was advanced into the lesion in the 10:00 lesion. Aspiration was performed with complete collapse of the hernandez of the cyst. The patient tolerated procedure without immediate complication. Sterile bandages were applied over the aspiration site(s).] IMPRESSION: 1. Successful ultrasound-guided aspiration of hypoechoic mass in the right breast at 10:00, 3 cm from the nipple. Recommendation: Annual screening mammography due in November 2025. Reviewed, dictated and finalized at location C. IMPRESSION: 1. Successful ultrasound-guided aspiration of hypoechoic mass in the right john paul ast at 10:00, 3 cm from the nipple. Recommendation: Annual screening mammography due in November 2025.
== END 2025-01-09 09:11 | disposition home or self-care (01) ==
PROVIDERS: PCP Nurse Practitioner; Visit Provider Surgery
DX: N63.11 Unspecified lump in the right breast, upper outer quadrant (principal)
CPT/HCPCS: 19083

== ENCOUNTER 2025-03-06 19:13 | Emergency (ER) | payer BC, SELFPAY ==
--- NOTE | 2025-03-06 19:31 | ED_ITS ---
HPI - URI/Sore Throat General Chief Complaint: Upper Respiratory Infection Stated Complaint: BACK PAIN/FEVER/BODY ACHES/COUGH/CHILLS Time Seen by Provider: 03/06/25 19:40 Source: patient Mode of arrival: ambulatory Limitations: no limitations History of Present Illness HPI Narrative: Summer is a 54-year-old female patient presenting to the clinic today with complaints of fever, body aches, chills, cough, sore throat, and low back pain x1 day. She reports few days ago she developed some fatigue. Fevers high is 101 ? F. Denies any chest pain or shortness of breath. Has taken ibuprofen for pain. Currently rates pain 12/08. Did at home COVID test and it was negative. She thinks she may have the flu. Related Data Home Medications ?Medication ?Instructions ?Recorded ?Confirmed ?Last Taken ?Type multivitamin 1 cap PO DAILY 04/25/1909/29 Unknown History ascorbate calcium (vitamin C) 500 500 mg PO DAILY 01/2910/16/24 Unknown History mg tablet magnesium 200 mg tablet 200 mg PO DAILY 02/15/24 Unknown History [id number]-[id number] 250 1 tablet PO Q4-6H P RN 08/23/24 10/16/24 Unknown History mg-250 mg-65 mg tablet (Excedrin Migraine) Allergies Allergy/AdvReac Type Severity Reaction Status Date / Time methylene blue Allergy Unknown Verified 03/06/25 19:24 morphine AdvReac Severe Headaches Verified 03/06/25 19:24 Review of Systems Review of Systems: Pertinent positives per HPI. Patient denies any fever, chills, rash, headache, visual changes, dizziness, cough, shortness of breath, chest pain, palpitations, nausea, vomiting, diarrhea, constipation, abdominal pain, or any urinary issues. [facility] Past Medical History Medical History (Updated 03/06/25 @ 19:42 by Giancarlo Perez APRN) Pelvic congestive syndrome Anxiety disorder, unspecified Osteoarthritis of hands, bilateral Skin cancer Right ureteral calculus History of blood transfusion Anemia Anxiety Depression GERD (gastroesophageal reflux disease) Irritable bowel Fibromyalgia Restless leg syndrome Crohn's disease Surgical History Surgical History History of right hemicolectomy Hx of nephrolithotomy with removal of calculi removal of rt ureteral stone with stent placed in rt ureter H/O local excision of skin lesion History of primary section Hx of cholecystectomy Hx of appendectomy History of bowel resection Family History Family History Grandparent Family history of malignant neoplasm of breast Other Diabetes mellitus Social History Social History Tobacco type: cigarettes Second hand tobacco smoke exposure: No Alcohol intake: never Substance use: current Substance use type: marijuana Do You Feel Safe in your Home?: Yes Lack of Transportation: No Lack of Food: Never True Current Housing: I Have Housing Concerned About Future Housing: No Difficulty Paying Gas/Electric Bills: No Difficulty Paying for Meds: No Currently Unemployed: No Education: Bachelor's Degree Difficulty w/ Childcare or Family Care: No Gender identity (if verbalized by the patient): Female Comments At the time of my signature, I reviewed and agree with the nursing past medical, surgical, social, and family history. There is no relevant family history pertinent to the patient complaint. Exam Narrative: General: Well-developed, well nourished, in no apparent distress Head: Normocephalic, atraumatic Eyes: Pupils equally round and reactive to light bilaterally, EOM intact, sclera and conjunctive clear, no discharge, lids normal Ears: TMs intact and clear, ear canals clear, no drainage, grossly hearing normal. Nose: Nares patent, clear nasal discharge, no inflammation, no sinus tenderness. Mouth: Oral pharynx red without lesions or masses, good dentition, MMM. Neck: Supple, trachea midline, no enlargement of anterior or posterior cervical nodes, no thyroid masses or goiter palpable. Cardio: Regular rate and rhythm, s1 and s2 normal, no murmur appreciated. Resp: Clear to auscultation bilaterally, no rhonchi, rales, wheezing or rubs Course Course Emergency Course: Portions of this record may have been created with voice recognition software. Level of Care: Express Care Visit Vital Signs Vital signs: Vital Signs Temperature 36.2 C L 03/06/25 19:34 Pulse Rate 116 H 03/06/25 19:34 Respiratory Rate 16 03/06/25 19:34 Blood Pressure 115/83 03/06/25 19:34 Pulse Oximetry 99 03/06/25 19:34 Temperature 36.2 C L 03/06/25 19:34 Pulse Rate 116 H 03/06/25 19:34 Respiratory Rate 16 03/06/25 19:34 Blood Pressure 115/83 03/06/25 19:34 Pulse Oximetry 99 03/06/25 19:34 Vital signs reviewed MDM - URI/Sore Throat MDM Narrative Medical decision making narrative: At the time of visit patient is resting comfortably on the exam table. Patient appears to be nontoxic. Complaints of fever, body aches, chills, cough, sore throat, and low back pain x1 day. She reports few days ago she developed some fatigue. Fevers high is 101 ? F. Denies any chest pain or shortness of breath. Has taken ibuprofen for pain. Currently rates pain 8/10. Did at home COVID test and it was negative. She thinks she may have the flu. On exam patient has no nasal drainage, TMs intact and clear, oropharynx red with mild swelling, tonsillar enlargement, no cervical lymphadenopathy, lung sounds are clear, heart rates regular rate and rhythm. Offer to do urine testing and patient declined. Labs: COVID, influenza, and strep test were all negative in the clinic today. We will send strep for culture. Plan: I suspect patient has URI/pharyngitis. Supportive measures were discussed with the patient and they voiced understanding discharge instructions and agrees to treatment plan. Return precautions reviewed Differential Diagnosis Differential diagnosis: Likely upper respiratory infection, otitis media, sinusitis, viral infection, bronchitis, influenza, pharyngitis and other (COVID) Lab Data Labs: Lab Results 03/06/25 Range/Units 19:40 POC Influenza A Ag Negative (Negative) POC Influenza B Ag Negative (Negative) POC SARS CoV-2 Ag Negative (Negative) POC Grp A Strep Screen Negative (Negative) Discharge Plan Discharge Clinical Impression: URI (upper respiratory infection) Qualifiers: URI type: unspecified URI Qualified Code(s): J06.9 - Acute upper respiratory infection, unspecified Pharyngitis Qualifiers: Pharyngitis/tonsillitis etiology: unspecified etiology Qualified Code(s): J02.9 - Acute pharyngitis, unspecified Patient Disposition: Home Condition: Stable Instructions: Antibiotic Form, Pharyngitis (ED), Cold Symptoms (ED) Additional Instructions: COVID, influenza, and strep test were all negative in the clinic today we will send strep for culture if this comes back positive we will contact you in place you on antibiotics at that time. Lung sounds are clear. No sign of bacterial infection in the clinic today. Increase fluids and stay well hydrated May take Tylenol or motrin as directed on bottle for pain/fever May use Flonase 1 spray in each nare daily May take OTC antihistamines such as Zyrtec or Claritin daily as directed on bottle May apply Vicks vapor rub to chest to open sinuses Sinus rinses for congestion Cepacol spray, cough drops, throat lozenges, warm tea with honey/lemon, gargle salt water to soothe throat BRAT diet for diarrhea Clear liquids x 24 hours then advance as tolerated for nausea/vomiting Go to the ED if you develop a worsening in your condition- high fever not controlled by Tylenol or Motrin, dehydration, weakness, lethargy, shortness of breath, or chest pain. Follow up with your PCP in 3-5 days if symptoms persist. Patient Language: Singaporean Prescriptions: No Action pramipexole 1 mg tablet See Rx Instructions .ROUTE .COMPLEX Qty: 270 3RF Dose Instruction: TAKE 2 TABLETS BY MOUTH EVERY NIGHT AT BEDTIME Rx Instructions: TAKE 3 TABLETS BY MOUTH EVERY NIGHT AT BEDTIME magnesium 200 mg tablet 200 mg PO DAILY ascorbate calcium (vitamin C) 500 mg tablet 500 mg PO DAILY Excedrin Migraine 250-250-65 mg tablet 1 tablet PO Q4-6H PRN multivitamin Capsule 1 cap PO DAILY Follow-up/Referrals: Leroy Jensen DO [Physician, Internal Medicine] Stand Alone Forms: Work/School Release IP Time of Disposition: 19:44 Quality NIHSS Nursing Documentation ED NIHSS nursing documentation: reviewed/agree
[2025-03-06 19:34] VITALS: BP 115/83; PULSE 116; RESP 16; TEMP 36.2; O2SAT 99
[2025-03-06 19:41] LABS: EDCOVIDSCREEN Negative (Negative)
[2025-03-06 19:42] LABS: EDINFLUASCREEN Negative (Negative); EDINFLUBSCREEN Negative (Negative); EDSTREPNEGPOS1 Negative (Negative)
== END 2025-03-06 19:55 | disposition home or self-care (01) ==
PROVIDERS: Emergency Provider Nurse Practitioner Family; PCP Nurse Practitioner
DX: J06.9 Acute upper respiratory infection, unspecified (principal); Z20.822 Contact with and (suspected) exposure to COVID-19
CPT/HCPCS: 87081; 87426; 87804; 87880; 99213; G0463